=== PATIENT | male | born 1960 | race Caucasian/White ===

== ENCOUNTER 2019-11-04 03:26 | Inpatient (IN) | payer OTHER, SELFPAY ==
[2019-11-04] VITALS (31 sets, daily range): BP systolic 123–165; BP diastolic 71–112; PULSE 41–81; RESP 16–28; TEMP 36.5–36.9; O2SAT 94–99; BMI 22.1
--- NOTE | ~2019-11-04 | XR_ITS ---
XR chest 1V portable DATE: 11/04/2019 03:43 INDICATION: Shortness of breath, weakness TECHNIQUE: Portable upright AP chest on 11/04/2019 at 0342 hours COMPARISON: None FINDINGS: Normal heart size. There is mild aortic arch calcification. No hilar or mediastinal enlarge ment. No pulmonary infiltrate or consolidation, pleural effusion or pulmonary vascular congestion or pneumothorax. Osteopenia. IMPRESSION: No active cardiopulmonary disease Reviewed, dictated and finalized at location A.
--- NOTE | 2019-11-04 03:29 | ECG_ITS ---
Measurements Intervals [place] Rate: 68 P: 81 SD: 138 QRS: 74 QRSD: 100 T: 94 QT: 354 QTc: 378 Interpretive Statements SINUS RHYTHM ATRIAL PREMATURE COMPLEX POSSIBLE LEFT ATRIAL ENLARGEMENT INCOMPLETE RIGHT BUNDLE BRANCH BLOCK INFERIOR ST ELEVATION MYOCARDIAL INJURY- ACUTE POSTERIOR INFARCT- ACUTE ABNORMAL ECG Electronically Signed On 11-04-2019 7:22:34 CDT by Manuel Caro D.O.
[2019-11-04 03:43] LABS: Basophils Percent Auto 0.3 % (0.2-1.2); Eosinophils Absolute Auto 0.1 K/mm3 (0-0.3); Hematocrit 46.5 % (42.0-52.0); Immature Granulocyte Absolute 0.06 K/mm3 (0.00-0.031); Immature Granulocyte Percent A 0.5 % (0-0.5); Lymphocytes Absolute Auto 2.53 K/mm3 (0.9-3.2); Lymphocytes Percent Auto 21.7 % (18.3-44.2); Mean Corpuscular HGB Conc 34.4 g/dl (32-36); Mean Corpuscular Hemoglobin 32.5 pg (26-34); Mean Corpuscular Volume 94.5 fl (80-100); Mean Platelet Volume 9.3 fl (7.4-10.4); Monocytes Absolute Auto 0.5 K/mm3 (0.1-0.6); Monocytes Percent Auto 4.4 % (2.6-8.5); Neutrophils Absolute Auto 8.4 K/mm3 (1.3-6.7); Neutrophils Percent Auto 72.1 % (45.5-73.1); Platelet Count Result 244 k/mm3 (150-375); Red Blood Count 4.92 M/mm3 (4.6-6.20); Red Cell Distribution Width 13.2 % (11.5-14.5); White Blood Count 11.6 K/mm3 (4.5-10.0)
--- NOTE | 2019-11-04 03:52 | ED.CHESTPAIN ---
HPI - Chest Pain General Chief Complaint: Chest Pain Stated Complaint: CP History of Present Illness HPI narrative: Awoken from sleep early this morning by severe substernal chest pain without radiation. Associated with dyspnea and nausea. He has never had this type f pain before. EMS found him to have an inferior GA on 12-lead. Given aspirin. Pain still /10 on arrival to the ED. He reports no medical history, although he has not sought medical care in quite some time. Related Data Home Medications Medication Instructions Recorded Confirmed No Home Medications 11/04/19 11/04/19 Allergies Allergy/AdvReac Type Severity Reaction Status Date / Time No Known Allergies Allergy Unverified 11/04/19 03:25 Review of Systems Review of Systems: All systems reviewed & are unremarkable except as noted in HPI and below Constitutional: Constitutional: Denies fever(s) ENT: Denies dizziness Cardiovascular: Cardiovascular: Reports chest pain and Denies radiating jaw, neck or arm pain Respiratory: Respiratory: Reports dyspnea Gastrointestinal: Gastrointestinal: Denies abdominal pain and Reports nausea Musculoskeletal: Musculoskeletal: Denies back pain PMFSH Social History Social History (Updated 11/04/19 @ 03:55 by Morgan Martinez MD) Smoking status: Current every day smoker Exam Const: General: alert Nutritional Appearance: well nourished Orientation/consciousness: patient oriented x3 Other: moderate distress HENMT: Head: normal to inspection Chest: Chest palpation & inspection: no tenderness Resp: Effort & Inspection: normal respiratory effort Auscultation: clear to auscultation bilaterally Cardio: Rate: regular rate Rhythm: regular rhythm Skin: General skin exam: normal color Neuro: General: patient oriented x3, moves all extremities, no focal motor deficits and CN's II-XI intact bilaterally Speech: normal speech Extrem: General: no edema Course Vital Signs Vital signs: Vital Signs Temperature 36.7 C 11/04/19 03:25 Pulse Rate 80 11/04/19 03:25 Respiratory Rate 22 H 11/04/19 03:25 Blood Pressure 151/112 H 11/04/19 03:25 Pulse Oximetry 96 11/04/19 03:25 Temperature 36.7 C 11/04/19 03:25 Pulse Rate 81 11/04/19 03:47 Respiratory Rate 28 H 11/04/19 03:47 Blood Pressure 123/97 H 11/04/19 03:47 Pulse Oximetry 98 11/04/19 03:47 MDM - Chest Pain MDM Narrative Medical decision making narrative: ST elevations in all inferior leads with reciprocal changes. I will avoid nitro given that this is an inferior GA. Will give morphine PRN and IV metorpolol. Will defer on heparin to cardiology. 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 Medical Records Data Attestation: I reviewed the patient's medical records. Lab Data Result diagrams: 11/04/19 03:36 11/04/19 03:36 Labs: Lab Results 11/04/19 11/04/19 11/04/19 Range/Units 03:36 03:36 03:36 WBC Pending RBC Pending Hgb Pending Hct Pending MCV Pending MCH Pending MCHC Pending RDW Pending Plt Count Pending MPV Pending Immature Gran % (Auto) Pending Neut % (Auto) Pending Lymph % (Auto) Pending [place] % (Auto) Pending Eos % (Auto) Pending Baso % (Auto) Pending Lymph # (Auto) Pending [place] # (Auto) Pending Eos # (Auto) Pending Baso # (Auto) Pending Abs Immat Gran (auto) Pending Absolute Neuts (auto) Pending Absolute Nucleated RBC Pending Nucleated RBC % Pending PT Pending INR Pending APTT Pending Sodium Pending Potassium Pending Chloride Pending Carbon Dioxide Pending BUN Pending Creatinine Pending Estim Creat Clear Calc Pending Estimated GFR Pending Glucose Pending Calcium Pending Total Bilirubin Pending AST Pending ALT Pending Alkaline Phosphatase Pending Troponin I Pendin
[2019-11-04 03:55] LABS: Alanine Aminotransferase 19 U/L (4-50); Alkaline Phosphatase 72 U/L (38-126); Aspartate Amino Transferase 25 U/L (17-59); Bilirubin,Total 0.3 mg/dL (0.2-1.3); Blood Urea Nitrogen 10 mg/dL (9-20); Calcium 8.7 mg/dL (8.4-10.2); Carbon Dioxide 21 mmol/L (22-30); Chloride 108 mmol/L (98-107); Cholesterol 170 mg/dL (0-200); Estimated Glomerular Filt Rate > 60; Glucose 191 mg/dL (75-110); HDL Direct 32 mg/dL; Potassium 3.7 mmol/L (3.4-5.0); Sodium 139 mmol/L (137-145); Triglycerides 460 mg/dL (<150)
[2019-11-04 04:00] LABS: Partial Thromboplastin Time 25.1 SECONDS (22.3-36.8)
[2019-11-04 04:06] LABS: LDL Cholesterol Direct 104 mg/dL
[2019-11-04 04:14] LABS: Troponin I 0.042 ng/mL (0.000-0.034)
--- NOTE | 2019-11-04 04:41 | ECG_ITS ---
Measurements Intervals [place] Rate: 67 P: 79 MS: 122 QRS: 79 QRSD: 99 T: 75 QT: 408 QTc: 432 Interpretive Statements SINUS RHYTHM WITH SINUS ARRHYTHMIA INCOMPLETE RIGHT BUNDLE BRANCH BLOCK BASELINE ARTIFACT- I, AVL BORDERLINE ECG Electronically Signed On 11-04-2019 7:23:20 CDT by Manuel Caro D.O.
--- NOTE | 2019-11-04 04:47 | WPDCARDPROC ---
Cardiac Cath Procedure Note Date of procedure:: 11/04/19 Performing physician:: Wilner August MD Indication:: acute inferior wall IN Brief clinical history:: this is a 59-year-old patient without any previous known cardiac history. In the middle of the night he was awakened with chest pain 911 was called to his home. Apparently ECG in the field demonstrated acute inferior current of injury and STEMI team was activated. Procedure Procedure performed:: Emergency coronary angiography emergency percutaneous intervention the RCA left ventriculography Sedation/Medication given:: no sedation administered Access site:: right femoral artery Estimated blood loss:: 20-30 Procedure note:: the patient was brought to the cardiac catheterization lab in the emergency setting described above. The right femoral triangle was prepped and draped in the usual fashion. Anesthesia was given with 1% lidocaine infiltrated locally. Using the modified Seldinger technique a 6 Uzbek sheath was punctured into the right femoral artery. After this standard 5 Uzbek FL4 and JR4 catheters were used to engage inject the left and right coronary arteries respectively. The cine angiograms were reviewed. Following this PCI of the right coronary artery was recommended and carried out as detailed below. the right coronary artery was engaged using the 6 Uzbek JR4 guiding catheter. The stenosis was crossed with a 0.014 BMW guidewire. The lesion was pre-dilated with a 3 x 20 mm emerge PTCA balloon. The lesion was stented with a 3.5 x 22 mm [employer] Corpi[employer] sirolimus eluting stent. Following completion of PCI the guidewires guiding catheter were removed. After this a 5 Uzbek angled pigtail catheter was used to measure left-sided hemodynamics and to injected LV g in the LENTZ projection. After diagnostic angiography and before intervention the patient was anticoagulated with Angiomax bolus and infusion and he received a loading dose of 180 mg of oral Brilinta. At the conclusion of the case the sheath was sutured into position and he was taken to the ICU for post IN/PCI recovery in stable condition. There were no procedural complications and there was no groin hematoma upon leaving the laborer wrecking and salvaging Findings:: the left main coronary artery is medium in caliber and nicely patent. the LAD is a medium caliber artery which gives rise to a moderate-sized diagonal branch and then bifurcates more distally. The LAD itself has mild diffuse disease throughout but no significant flow-limiting lesions. The major diagonal branch has approximately 60-70% stenosis in the 1st portion of the vessel. Circumflex is a moderate caliber artery with also mild diffuse disease throughout. In the midportion of the circumflex there appears to be 70% stenosis in the trunk of the AV groove. Right coronary artery is large in caliber dominant to the posterior circulation and is also diffusely disease throughout. Most of this is mild diffuse plaquing. There is a subtotal 99% stenosis in the mid RCA which is obviously the culprit lesion. The proximal right coronary artery has 50% stenosis with an ulcerated plaque. This does not appear to be flow limiting. The RCA as detailed above was crossed with the 0.014 BMW guidewire. Following pre dilatation and deployment of the course 0 stent device detailed above the culprit stenosis was affectively obliterated with -10% residual stenosis. There was no evidence of dissection perforation or distal embolization. The RV branch was immediately at the site of the stenosis and was jailed by the stent device. The left ventricle is mildly dilated and demonstrates akinesis of the infero posterior wall. The remainder of the LV is mildly hypodynamic with a global ejection fraction of 40% Conclusion:: 1. acute inferior wall myocardial infarction related to subtotal 99% stenosis in the midportion of the dominant right coronary artery. The remainder of the vessel is mild
--- NOTE | 2019-11-04 04:57 | PM.IMHP ---
H&P: HPI History of Present Illness Chief complaint: STEMI Narrative: Ruiz Mac is a 59 year old male who is unknown to me prior to this encounter. I was called in the middle of the night as the STEMI team was activated because of acute inferior wall AZ. Apparently the patient was asleep and was awakened in the middle of the night with retrosternal burning chest pain. EMS was called to his residence where ECG in the field was diagnostic acute inferior wall AZ. In that situation we were activated for emergency catheterization. The not known to have any previous cardiac problems. He is not known to have significant medical problems from what I understand although he does not have any regular medical attention Review of Systems Review of Systems: ROS unobtainable: Yes unobtainable due to medical condition [facility] Social History Social History (Updated 11/04/19 @ 03:55 by Morgan Martinez MD) Smoking status: Current every day smoker Meds Home Medications and Allergies Home Medications Medication Instructions Recorded Confirmed Type No Home Medications 11/04/19 11/04/19 History Allergies Allergy/AdvReac Type Severity Reaction Status Date / Time No Known Allergies Allergy Unverified 11/04/19 03:25 Vital Signs Vital Signs - 24 hr 11/04/19 03:25 11/04/19 03:47 Temperature 36.7 C Pulse Rate 79 81 Respiratory Rate 22 H 28 H Blood Pressure 151/112 H 123/97 H Pulse Oximetry 96 98 Exam Const: General: in distress and uncomfortable Other: somewhat disheveled-appearing white male who appears considerably older than his stated age with a long unkempt garcia HENMT: Mouth: Yes moist mucous membranes Eyes: Sclera: sclerae normal Pupils: Equal, round and reactive pupils present Neck: Neck: supple and no JVD Thyroid: thyroid normal Other: carotid upstrokes are intact no significant bruits are audible Resp: Effort & Inspection: normal respiratory effort Other: breath sounds are diminished throughout both lung robles no rales rhonchi or wheezing Cardio: Rate: regular rate Rhythm: regular rhythm Other: no audible murmur S4 is evident PMI is enlarged GI: GI Palp: Yes Soft to palpation Auscultation: normal bowel sounds Skin: General skin exam: normal color Extrem: General: normal to inspection H&P: Results Labs Labs: Short CBC 11/04/19 Range/Units 03:36 WBC 11.6 H (4.5-10.0) K/mm3 Hgb 16.0 (14.0-18.0) g/dL Hct 46.5 (42.0-52.0) % Plt Count 244 (150-375) k/mm3 BMP 11/04/19 03:36 Sodium 139 Potassium 3.7 Chloride 108 H Carbon Dioxide 21 L BUN 10 Creatinine 0.70 Glucose 191 H Calcium 8.7 Cardiac Enzymes 11/04/19 Range/Units 03:36 Troponin I 0.042 H* (0.000-0.034) ng/mL Liver Function 11/04/19 Range/Units 03:36 Total Bilirubin 0.3 (0.2-1.3) mg/dL AST 25 (17-59) U/L ALT 19 (4-50) U/L Alkaline Phosphatase 72 (38-126) U/L Albumin 4.0 (3.5-5.1) g/dL Assessment and Plan Additional Plan 59-year-old patient with acute inferior wall myocardial infarction being brought for emergency angiography in hopes of providing emergency revascularization Wilner August [facility]
[2019-11-04] MEDS: SODIUM CHLORIDE 0.9% IV 1,000 ML 125 ML IV CONT (05:43)
[2019-11-04] MEDS: MORPHINE SULFATE 2 MG/ML INJ IV PUSH (05:44)
[2019-11-04] MEDS: LOSARTAN POTASSIUM 25 MG TABLET PO (05:45)
[2019-11-04] MEDS: carvediloL 6.25 MG TABLET PO ×2 (05:45→19:40)
--- NOTE | 2019-11-04 06:19 | ADMIMU ---
This patient, Ruiz Mac, was admitted to ICU status, and placed in Intensive Care Unit-6 on 11/04/19 at 0500. Patient/family oriented to hospital policies and general routines including ID bracelet, bed and alarms, visiting hours, pain management, procedures, bathroom and other care routines, personal items, smoking policy, room service/diet, and visiting hours. Valuables list has been completed. Information on how to activate the Rapid Response Team has been discussed. Patient/Family are encouraged to report perceived risks to care and to ask questions if they do not understand what they are told or what they should do.
--- NOTE | 2019-11-04 06:20 | PC.NURSE ---
Pt given frequent reminders to keep right leg straight, brace right groin if he needs to cough, keep head flat, do not cross legs, and reinforced he can not turn on side. Sheath can be pulled at 0750.
[2019-11-04] MEDS: TICAGRELOR 90 MG TABLET PO ×2 (08:55→20:14)
[2019-11-04] MEDS: ROSUVASTATIN 10 MG TABLET 20 MG PO (08:55)
[2019-11-04] MEDS: ASPIRIN 81 MG CHEWABLE TABLET PO (08:55)
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
[2019-11-04] MEDS: LOSARTAN POTASSIUM 50 MG TABLET PO (10:14)
[2019-11-05] VITALS (16 sets, daily range): BP systolic 118–172; BP diastolic 66–101; PULSE 55–78; RESP 16–26; TEMP 36.1–36.6; O2SAT 98–100
--- NOTE | 2019-11-05 05:11 | ECG_ITS ---
Measurements Intervals [place] Rate: 55 P: 78 CA: 113 QRS: -11 QRSD: 102 T: -68 QT: 466 QTc: 448 Interpretive Statements SINUS BRADYCARDIA WITH SHORT CA INTERVAL INCOMPLETE RIGHT BUNDLE BRANCH BLOCK INFERIOR INFARCT, PROBABLY RECENT ABNORMAL ECG Electronically Signed On 11-05-2019 9:27:40 CDT by Manuel Caro D.O.
[2019-11-05 08:22] LABS: Basophils Percent Auto 0.3 % (0.2-1.2); Eosinophils Absolute Auto 0.2 K/mm3 (0-0.3); Eosinophils Percent Auto 1.8 % (0-4.4); Hematocrit 45.9 % (42.0-52.0); Hemoglobin 15.9 g/dL (14.0-18.0); Immature Granulocyte Absolute 0.14 K/mm3 (0.00-0.031); Immature Granulocyte Percent A 1.1 % (0-0.5); Lymphocytes Absolute Auto 2.28 K/mm3 (0.9-3.2); Lymphocytes Percent Auto 17.8 % (18.3-44.2); Mean Corpuscular HGB Conc 34.6 g/dl (32-36); Mean Corpuscular Hemoglobin 32.4 pg (26-34); Mean Corpuscular Volume 93.5 fl (80-100); Mean Platelet Volume 9.6 fl (7.4-10.4); Monocytes Absolute Auto 0.9 K/mm3 (0.1-0.6); Neutrophils Absolute Auto 9.2 K/mm3 (1.3-6.7); Platelet Count Result 208 k/mm3 (150-375); Red Blood Count 4.91 M/mm3 (4.6-6.20); Red Cell Distribution Width 13.2 % (11.5-14.5); White Blood Count 12.8 K/mm3 (4.5-10.0)
[2019-11-05] MEDS: carvediloL 6.25 MG TABLET PO ×2 (08:34→20:13)
[2019-11-05] MEDS: ROSUVASTATIN 10 MG TABLET 20 MG PO (08:34)
[2019-11-05] MEDS: ASPIRIN 81 MG CHEWABLE TABLET PO (08:34)
[2019-11-05 08:35] LABS: Blood Urea Nitrogen 9 mg/dL (9-20); Calcium 8.6 mg/dL (8.4-10.2); Calcium 8.7 mg/dL (8.4-10.2); Carbon Dioxide 25 mmol/L (22-30); Chloride 105 mmol/L (98-107); Chloride 106 mmol/L (98-107); Estimated CRCL calculation 108 ml/min; Estimated CRCL calculation 94 ml/min; Estimated Glomerular Filt Rate > 60; Glucose 110 mg/dL (75-110); Phosphorus 2.7 mg/dL (2.5-4.5); Sodium 134 mmol/L (137-145); Sodium 135 mmol/L (137-145)
[2019-11-05] MEDS: LOSARTAN POTASSIUM 100 MG TABLET PO (08:35)
[2019-11-05] MEDS: TICAGRELOR 90 MG TABLET PO ×2 (08:35→20:13)
--- NOTE | 2019-11-05 09:38 | WPDINTPN ---
Progress Note: A&P Assessment and Plan (1) ST elevation (STEMI) myocardial infarction: Qualifiers: Involved coronary artery: unspecified coronary artery Qualified Code(s): I21.3 - ST elevation (STEMI) myocardial infarction of unspecified site Code(s): I21.3 - ST elevation (STEMI) myocardial infarction of unspecified site Status: Acute Assessment and Plan: patient presented with chest pain on 11/04/2019 in the early hours, found to have acute inferior ST-elevation [place] status post cardiac catheterization, PTCA/ PCI with EVANGELINA x1 to mid portion of the dominant RCA. LV systolic dysfunction with inferior posterior akinesis and global ejection fraction of 40% was noted - Continue Brilinta, aspirin, carvedilol, rosuvastatin, losartan - cardiology following the patient. (2) Hyperlipidemia: Qualifiers: Hyperlipidemia type: unspecified Qualified Code(s): E78.5 - Hyperlipidemia, unspecified Code(s): E78.5 - Hyperlipidemia, unspecified Status: Acute Assessment and Plan: hypertriglyceridemia, patient on rosuvastatin (3) Hypertension: Qualifiers: Hypertension type: essential hypertension Qualified Code(s): I10 - Essential (primary) hypertension Code(s): I10 - Essential (primary) hypertension Status: Acute Assessment and Plan: possible undiagnosed essential hypertension - patient on Coreg and losartan, cardiology following the patient increased losartan does yesterday - Additional Plan discussed with patient updated with his condition and plan of care. Code status: Full code Critical care time spent: 31 minutes likely patient will downgrade to IMU status Due to a high probability of clinically significant, life threatening deterioration, the patient required my highest level of preparedness to intervene emergently and I personally spent this critical care time directly and personally managing the patient. This critical care time included obtaining a history; examining the patient; pulse oximetry; ordering and review of studies; arranging urgent treatment with development of a management plan; evaluation of patient's response to treatment; frequent reassessment; and discussions with other providers. It was exclusive of separately billable procedures and treating other patients and teaching time. Please see Assessment and Plan section and the rest of the note for further information on patient assessment and treatment Subjective Date/time seen: 11/05/19 09:38 Reason for consult: acute inferior wall [place] status post cardiac catheterization, PTCA/ PCI with EVANGELINA x1 to mid portion of the dominant right coronary artery 11/05/2019: Patient seen and examined this morning. Denies any chest pain, shortness of breath abdominal pain, nausea, vomiting. Patient has been hypertensive. Good urine output, afebrile, hemodynamically stable. Review of Systems Review of Systems: All systems reviewed & are unremarkable except as noted in HPI and below Exam Const: General: comfortable and no acute distress HENMT: Mouth: Yes dry mucous membranes Eyes: Sclera: sclerae normal Pupils: Equal, round and reactive pupils present Neck: Neck: supple and no JVD Resp: Effort & Inspection: normal respiratory effort Auscultation: clear to auscultation bilaterally Cardio: Rate: regular rate Rhythm: regular rhythm GI: Inspection: non-distended GI Palp: Yes Soft to palpation and No Tenderness to palpation present (GI) Auscultation: normal bowel sounds : Other: deferred Skin: General skin exam: normal color and no rashes or lesions noted Neuro: Cranial nerves: Yes Equal, round and reactive pupils present Other: patient is awake, alert, oriented, nonfocal. Follows simple commands in all extremities Extrem: General: no edema and no pedal edema Other: Right groin site without evidence of ecchymosis or hematoma Psych: Mental Status: mental sta
--- NOTE | 2019-11-05 12:45 | PM.PNCARD ---
Progress Note: A&P Additional Plan 59-year-old white male with: Coronary artery disease presenting with acute inferior wall infarction. Underwent successful emergency PCI with stenting of subtotal occlusion of the mid RCA. The remainder of his coronary arteries are diffusely diseased but there are no other high-grade flow-limiting lesions. Left ventricular function is [id number] depressed. Patient has a history of longstanding tobacco use but no prior history of other known medical problems. He had very little in the way of medical attention prior to this Patient may transfer to the floor today. Continue dual anti-platelet therapy, carvedilol losartan and statin therapy. He was very hypertensive last evening but with the above medications blood pressure has now normalized. Anticipate possible discharge tomorrow will determine that when I see him on rounds in the morning Wilner August MD [facility] Subjective Date/time seen: Date of service: 11/05/19 12:45 Interval history: Follow-up visit in 59-year-old gentleman with acute inferior wall infarction with emergency RCA intervention Patient is asymptomatic today feels well and is very appreciative of the care he received Exam Const: General: comfortable and no acute distress HENMT: Mouth: Yes moist mucous membranes Eyes: Sclera: sclerae normal Pupils: Equal, round and reactive pupils present Neck: Neck: supple and no JVD Thyroid: thyroid normal Other: Carotid pulses normal no bruits Resp: Effort & Inspection: normal respiratory effort Other: Breath sounds diminished throughout both lung robles Cardio: Rate: regular rate Rhythm: regular rhythm Other: No murmur no gallop no rub GI: Auscultation: normal bowel sounds Skin: General skin exam: normal color Neuro: Cognition (Neuro): normal cognition Extrem: General: normal to inspection Objective Data Vital Signs Vital Signs: Vital Signs - 24 hr 11/04/19 13:55 11/04/19 14:00 11/04/19 14:21 Temperature Pulse Rate 75 60 69 Pulse Rate [Right Pedal (Dorsalis Pedis) Monitor] 69 Respiratory Rate 16 16 Blood Pressure 159/76 H 159/76 H Pulse Oximetry 98 98 11/04/19 16:00 11/04/19 17:48 11/04/19 18:00 Temperature 36.9 C Pulse Rate 64 61 70 Pulse Rate [Right Pedal (Dorsalis Pedis) Monitor] Respiratory Rate 16 18 Blood Pressure 134/71 129/79 Pulse Oximetry 97 94 11/04/19 19:40 11/04/19 20:00 11/04/19 22:00 Temperature 36.8 C Pulse Rate 66 61 58 L Pulse Rate [Right Pedal (Dorsalis Pedis) Monitor] Respiratory Rate 17 17 Blood Pressure 147/86 H 153/89 H Pulse Oximetry 99 99 11/05/19 00:00 11/05/19 02:00 11/05/19 04:00 Temperature 36.4 C Pulse Rate 56 L 59 L 56 L Pulse Rate [Right Pedal (Dorsalis Pedis) Monitor] Respiratory Rate 16 20 16 Blood Pressure 172/101 H 135/78 149/91 H Pulse Oximetry 100 99 100 11/05/19 06:00 11/05/19 08:00 11/05/19 08:34 Temperature Pulse Rate 59 L 70 63 Pulse Rate [Right Pedal (Dorsalis Pedis) Monitor] Respiratory Rate 26 H 16 Blood Pressure 159/94 H 146/99 H Pulse Oximetry 99 99 11/05/19 09:54 11/05/19 10:00 11/05/19 12:00 Temperature Pulse Rate 61 63 71 Pulse Rate [Right Pedal (Dorsalis Pedis) Monitor] Respiratory Rate 16 21 H Blood Pressure 118/77 127/86 Pulse Oximetry 98 98 Intake/Output Intake/Output: Intake & Output 11/02/19 11/03/19 11/04/19 11/05/19 23:59 23:59 23:59 23:59 Intake Total 2600 360 Output Total 975 1700 Balance 1625 -1340 Meds/Results Medications: Active Medications Generic Name Dose Route Start Last Admin Trade Name Freq PRN Reason Stop Dose Admin Hydrocodone Bitart/Acetaminophen 1 tab 11/04/19 05:31 11/04/19 08:54 [place] 5-325 Mg PO 1 tab Q4H PRN Administration Pain Rated 4-6 Aspirin 81 mg 11/04/19 08:00 11/05/19 08:34 Aspirin Chewable PO 81 mg DAILY@0800 HERNANEDZ Administration Carvedilol 6.25 mg 11/04/19 09:00
--- NOTE | 2019-11-05 15:22 | PCDIET ---
This patient, Ruiz Mac, was received from ICU-6 into 207 via wheelchair on 11/05/19 at 1522. Personal belongings list checked and signed. Report received from JOSE Sharp. Patient/family oriented to unit policies and routines
[2019-11-06] VITALS (7 sets, daily range): BP systolic 114–138; BP diastolic 60–95; PULSE 58–79; RESP 18; TEMP 36.2–36.9; O2SAT 96–98
[2019-11-06] MEDS: TICAGRELOR 90 MG TABLET PO (08:41)
[2019-11-06] MEDS: LOSARTAN POTASSIUM 100 MG TABLET PO (08:41)
[2019-11-06] MEDS: ASPIRIN 81 MG CHEWABLE TABLET PO (08:41)
[2019-11-06] MEDS: ROSUVASTATIN 10 MG TABLET 20 MG PO (08:41)
[2019-11-06] MEDS: carvediloL 6.25 MG TABLET PO (08:41)
--- NOTE | 2019-11-06 09:28 | PM.PNCARD ---
Progress Note: A&P Additional Plan Diffuse multivessel coronary artery disease as described in my emergency angiogram note. Patient presented with acute inferior wall SD having undergone emergency PCI to the right coronary artery restoring NISHA 3 flow in the vessel. He appears to be a acceptable candidate for discharge today. Dual anti-platelet therapy, beta-masoud ARB and statin will be continued. Office follow-up will be arranged for 2-3 weeks. Wilner August MD [facility] Time Spent With Patient Time with patient: 15 - 25 minutes Subjective Date/time seen: Date of service: 11/06/19 09:28 Interval history: Follow-up visit in 59-year-old man after presenting with inferior wall SD undergoing emergency PCI to RCA Exam Const: General: comfortable and no acute distress HENMT: Mouth: Yes dry mucous membranes Eyes: Sclera: sclerae normal Pupils: Equal, round and reactive pupils present Neck: Neck: supple and no JVD Thyroid: thyroid normal Resp: Effort & Inspection: normal respiratory effort Other: Diminished breath sounds in both lung robles with expiratory rhonchi centrally fairly good air exchange otherwise Cardio: Rate: regular rate Rhythm: regular rhythm Other: No murmur no gallop no rub GI: Auscultation: normal bowel sounds Skin: General skin exam: normal color Neuro: Cognition (Neuro): normal cognition Extrem: General: normal to inspection Objective Data Vital Signs Vital Signs: Vital Signs - 24 hr 11/05/19 09:54 11/05/19 10:00 11/05/19 12:00 Temperature Pulse Rate 61 63 59 L Respiratory Rate 16 21 H Blood Pressure 118/77 127/86 Pulse Oximetry 98 98 11/05/19 14:00 11/05/19 16:00 11/05/19 18:00 Temperature 36.6 C Pulse Rate 64 61 61 Respiratory Rate 16 Blood Pressure 147/85 H Pulse Oximetry 98 11/05/19 19:53 11/05/19 20:00 11/05/19 20:13 Temperature 36.1 C L Pulse Rate 65 75 78 Respiratory Rate 18 Blood Pressure 121/66 Pulse Oximetry 98 11/05/19 22:00 11/06/19 00:00 11/06/19 02:00 Temperature 36.2 C L Pulse Rate 58 L 68 69 Respiratory Rate 18 Blood Pressure 138/95 H Pulse Oximetry 96 11/06/19 03:53 11/06/19 04:00 11/06/19 06:00 Temperature 36.2 C L Pulse Rate 79 58 L 60 Respiratory Rate 18 Blood Pressure 114/60 Pulse Oximetry 98 11/06/19 08:00 11/06/19 08:41 Temperature 36.9 C Pulse Rate 65 59 L Respiratory Rate 18 Blood Pressure 128/90 Pulse Oximetry 98 Intake/Output Intake/Output: Intake & Output 11/03/19 11/04/19 11/05/19 11/06/19 23:59 23:59 23:59 23:59 Intake Total 2600 1190 540 Output Total 975 1700 Balance 1625 -510 540 Meds/Results Medications: Active Medications Generic Name Dose Route Start Last Admin Trade Name Freq PRN Reason Stop Dose Admin Hydrocodone Bitart/Acetaminophen 1 tab 11/04/19 05:31 11/04/19 08:54 [place] 5-325 Mg PO 1 tab Q4H PRN Administration Pain Rated 4-6 Aspirin 81 mg 11/04/19 08:00 11/06/19 08:41 Aspirin Chewable PO 81 mg DAILY@0800 HERNANDEZ Administration Carvedilol 6.25 mg 11/04/19 09:00 11/06/19 08:41 Coreg PO 6.25 mg Q12HR HERNANDEZ Administration Losartan Potassium 100 mg 11/05/19 09:00 11/06/19 08:41 Cozaar PO 100 mg DAILY HERNANDEZ Administration Nitroglycerin 0.4 mg 11/04/19 04:41 Nitrostat Subl 0.4 Mg (1/150) SUBLINGUAL Q5MIN PRN Chest Pain Rosuvastatin Calcium 20 mg 11/04/19 09:00 11/06/19 08:41 Crestor PO 20 mg DAILY HERNANDEZ Administration Ticagrelor 90 mg 11/04/19 09:00 11/06/19 08:41 Brilinta PO 90 mg Q12HR HERNANDEZ Administration Radiology Results: ITS Impressions Chest X-Ray 11/04/19 07:59 IMPRESSION: No active cardiopulmonary disease
--- NOTE | 2019-11-06 09:33 | PM.DS ---
DS: Admitting Diagnosis Admitting Diagnosis Admitting Diagnosis: ST elevation (STEMI) myocardial infarction of unspecified site DS: Summary Time Spent with Patient Time attestation: Total time spent providing and/or coordinating discharge services: Exam Const: General: comfortable and no acute distress HENMT: Mouth: Yes moist mucous membranes Eyes: Sclera: sclerae normal Pupils: Equal, round and reactive pupils present Neck: Neck: supple and no JVD Thyroid: thyroid normal Resp: Effort & Inspection: normal respiratory effort Other: Decreased breath sounds with expiratory rhonchi centrally in both lung robles. Cardio: Rate: regular rate Rhythm: regular rhythm GI: GI Palp: Yes Soft to palpation Auscultation: normal bowel sounds Skin: General skin exam: normal color Extrem: General: normal to inspection Discharge Plan Discharge Attending physician on discharge: Wilner August Consulting providers: Rickey Rogers Discharging Clinician: Wilner August Patient Disposition: Home, Self-Care Activity: as tolerated Diet: heart healthy Discharge Instructions: Do not lift more than 20 lb for the next 5 days. Office will contact you for follow-up appointment. Expect follow-up appointment in 2-3 weeks. Patient Instructions: Ticagrelor (By mouth), Heart Attack (DC), Coronary Artery Disease (DC), Heart Healthy Diet (DC), Pain Management (DC), Hypertension (DC), Heart Catheterization (DC), Antibiotic Form Stand Alone Forms: General Discharge Information Follow-up/Referrals: Rickey Rogers MD [Physician] - Discharge Medications: New aspirin [Children's Aspirin] 81 mg Tablet,Chewable 81 mg PO DAILY@0800 Qty: 30 RF: 5 carvedilol [Coreg] 6.25 mg Tablet 6.25 mg PO Q12HR Qty: 60 RF: 5 rosuvastatin [Crestor] 10 mg Tablet 20 mg PO DAILY Qty: 30 RF: 5 losartan 100 mg Tablet 100 mg PO DAILY Qty: 30 RF: 5 nitroglycerin [Nitrostat] 0.4 mg Tablet, Sublingual 0.4 mg sublingual Q5MIN PRN (Reason: Chest Pain) Qty: 20 RF: 5 Brilinta 90 mg Tablet 90 mg PO Q12HR Qty: 60 RF: 5 No Action No Home Medications RF: 0 Date of admission: 11/04/19 03:42 Primary Care Provider: PHYSICIAN,HAND LEATHER TRIMMER Admitting Provider: Wilner August Attending physician on admission: Wilner August Condition: Serious
== END 2019-11-06 10:33 | disposition home or self-care (01) | DRG 174 ==
LOC: ANHED 03:42 → ANHICU 04:01 → ANHIMU 11-05 18:10 → ANHICU 11-09 12:35 → ANHIMU 11-09 12:35
PROVIDERS: Internal Medicine; Admitting Provider Specialist; Emergency Provider Emergency Medicine; Visit Provider Specialist
PROC: 4A023N7 Measurement of Cardiac Sampling and Pressure, Left Heart, Percutaneous Approach (ICD-10-PCS; CPT 93452; principal; 2019-11-04 04:00)
PROC: 027034Z Dilation of Coronary Artery, One Artery with Drug-eluting Intraluminal Device, Percutaneous Approach (ICD-10-PCS; 2019-11-04 04:00)
DX: I21.19 ST elevation (STEMI) myocardial infarction involving other coronary artery of inferior wall (principal); I25.10 Atherosclerotic heart disease of native coronary artery without angina pectoris; F17.210 Nicotine dependence, cigarettes, uncomplicated; E78.5 Hyperlipidemia, unspecified; I10 Essential (primary) hypertension
CPT/HCPCS: 36415; 71045; 80048; 80053; 80061; 83735; 84100; 84484; 85025; 85610; 85730; 86850; 86900; 86901; 93005; 93458; 99291; A9270; C1725; C1769; C1874; C1887; C1894; C9606; J0583; J1644; J2270; J7030; J7040

== ENCOUNTER 2022-02-02 10:27 | Inpatient (IN) | payer OTHER, SELFPAY ==
[2022-02-02] VITALS (13 sets, daily range): BP systolic 130–158; BP diastolic 76–113; PULSE 68–102; RESP 16–25; TEMP 36–36.7; O2SAT 97–100; BMI 22.5; BMI 24.4
--- NOTE | 2022-02-02 | ECHO_ITS ---
Patient Info Name: Ruiz Mac Age: 61 years : 1960 Gender: Male Ht: 70 in Wt: 170 lbs BSA: 1.96 m2 HR: 68 bpm BP: 147 / 78 mmHg Heart Rhythm: Sinus Rhythm Technical Quality: Fair Exam Date: 02/02/2022 3:05 PM Exam Location: [facility] Patient Status: Inpatient Admit Date: 02/02/2022 Staff Ordering Physician: Mary Evans NP Television Specialist: Elana Gastelum RDCS Attending Provider: Maru Vernon DO Referring Physician: Cristina RIVERA; Exam Type: CA echo dop color flow w con Study Info Indications - history of coronary artery disease with noncompl Complete two-dimensional, color flow and Doppler transthoracic echocardiogram is performed with contrast to opacify the left ventricle and to improve the deliniation of the left ventricle endocardial borders. Contrast/Agitated Saline Contrast/Ag. Saline: Definity Amount: 3.00 ml Administered By: Elana Gastelum RDCS Existing IV Access: Yes IV Access Condition: patent with no signs of infiltration Summary 1. Left ventricular chamber dimension is normal. 2. Left ventricular systolic function is mildy reduced, estimated at 50% with basal inferior hypokinesis. 3. There is mildly increased left ventricular wall thickness. 4. Left ventricular septal wall motion is abnormal with septal motion related to bundle branch block. 5. The left ventricular diastolic function is normal. 6. Right ventricular systolic function is mildly reduced. TAPSE 1.5. 7. There is no aortic valve stenosis. 8. There is trace mitral valve regurgitation. Left Ventricle Left ventricular chamber dimension is normal. Left ventricular systolic function is mildy reduced, estimated at 50% with basal inferior hypokinesis. There is mildly increased left ventricular wall thickness. Left ventricular septal wall motion is abnormal with septal motion related to bundle branch block. The left ventricular diastolic function is normal. Right Ventricle Right ventricular chamber dimension is normal. Right ventricular systolic function is mildly reduced. TAPSE 1.5. Left Atria Left atrial chamber dimension is normal. Right Atria Right atrial chamber dimension is mildly enlarged. Aortic Valve The aortic valve is not well visualized. There is no aortic valve stenosis. There is no aortic valve regurgitation. Pulmonic Valve The pulmonic valve is not well visualized. Mitral Valve The mitral valve has normal leaflets. There is trace mitral valve regurgitation. Tricuspid Valve The tricuspid valve leaflets are normal. There is trace tricuspid valve regurgitation. No pulmonary hypertension, estimated pulmonary arterial systolic pressure is 20 mmHg. Pericardium/Pleural The pericardium appears normal. There is no pericardial effusion. Inferior Vena Cava Dilated inferior vena cava with <50% collapse upon inspiration consistent with elevated right atrial pressure, 10 mmHg. Aorta The aortic root size at the sinus of Valsalva is normal. There is mild aortic atherosclerosis. Left Ventricular Outflow Tract Name Value Normal LVOT 2D LVOT Diameter 1.97 cm LVOT Doppler -
--- NOTE | ~2022-02-02 | XR_ITS ---
EXAMINATION: XR chest 2V DATE: 02/02/2022 11:20 INDICATION: Chest pain. TECHNIQUE: Frontal and lateral views of the chest were obtained. COMPARISON: Chest single view 11/04/2019 FINDINGS: The chest demonstrates clear lungs without pneumonia, pleural effusion, or pneumothorax. Th e heart size is normal. IMPRESSION: 1. No acute cardiopulmonary disease. Reviewed, dictated and finalized at location A.
--- NOTE | 2022-02-02 10:28 | ECG_ITS ---
Measurements Intervals [place] Rate: 92 P: 68 [place]: 136 QRS: 73 QRSD: 94 T: 92 QT: 381 QTc: 471 Interpretive Statements SINUS RHYTHM WITH FREQUENT VENTRICULAR PREMATURE COMPLEXES AND BRIEF ATRIAL RUN POSSIBLE LEFT ATRIAL ENLARGEMENT INCOMPLETE RIGHT BUNDLE BRANCH BLOCK ABNORMAL ECG COMPARED TO ECG 11/05/2019 07:51:29 HEART RATE HAS INCREASED Electronically Signed On 02-02-2022 16:29:01 CDT by Satya Lindsay M.D.
[2022-02-02 10:51] LABS: Basophils Percent Auto 0.4 % (0.2-1.2); Eosinophils Absolute Auto 0.3 K/mm3 (0-0.3); Eosinophils Percent Auto 3.7 % (0-4.4); Hemoglobin 16.1 g/dL (14.0-18.0); Immature Granulocyte Absolute 0.03 K/mm3 (0.00-0.031); Immature Granulocyte Percent A 0.3 % (0-0.5); Lymphocytes Absolute Auto 2.02 K/mm3 (0.9-3.2); Lymphocytes Percent Auto 22.2 % (18.3-44.2); Mean Corpuscular HGB Conc 33.5 g/dl (32-36); Mean Corpuscular Hemoglobin 32.3 pg (26-34); Mean Corpuscular Volume 96.4 fl (80-100); Mean Platelet Volume 9.5 fl (7.4-10.4); Monocytes Absolute Auto 0.7 K/mm3 (0.1-0.6); Monocytes Percent Auto 7.2 % (2.6-8.5); Neutrophils Percent Auto 66.2 % (45.5-73.1); Platelet Count Result 238 k/mm3 (150-375); Red Blood Count 4.98 M/mm3 (4.6-6.20); Red Cell Distribution Width 13.2 % (11.5-14.5); White Blood Count 9.1 K/mm3 (4.5-10.0)
[2022-02-02 11:02] LABS: Alanine Aminotransferase 25 U/L (6-50); Albumin Level 4.1 g/dL (3.5-5.1); Alkaline Phosphatase 75 U/L (38-126); Anion Gap 9 mmol/L (8-16); Aspartate Amino Transferase 32 U/L (17-59); Bilirubin,Total 0.5 mg/dL (0.2-1.3); Blood Urea Nitrogen 13 mg/dL (9-20); Carbon Dioxide 26 mmol/L (22-30); Chloride 101 mmol/L (98-107); Estimated CRCL calculation 88 ml/min; Estimated Glomerular Filt Rate > 60; Glucose 137 mg/dL (65-110); INR 1.1; Lipase 89 U/L (23-300); Partial Thromboplastin Time 28.6 SECONDS (22.3-36.8); Potassium 4.2 mmol/L (3.4-5.0); Prothrombin Time 13.6 Seconds (11.1-14.7); Sodium 136 mmol/L (137-145)
[2022-02-02 11:16] LABS: Troponin I 0.417 ng/mL (0.000-0.034)
--- NOTE | 2022-02-02 11:24 | ECG_ITS ---
Measurements Intervals [place] Rate: 83 P: 74 [place]: 138 QRS: 76 QRSD: 90 T: 91 QT: 395 QTc: 466 Interpretive Statements SINUS RHYTHM WITH FREQUENT VENTRICULAR PREMATURE COMPLEXES POSSIBLE LEFT ATRIAL ENLARGEMENT RSR' IN V1/V2 NONSPECIFIC T-WAVE ABNORMALITY BORDERLINE ECG COMPARED TO ECG 02/02/2022 10:30:48 T-WAVE ABNORMALITY NOW PRESENT Electronically Signed On 02-02-2022 16:35:12 CDT by Satya Lindsay M.D.
--- NOTE | 2022-02-02 11:35 | ED.CHESTPAIN ---
HPI - Chest Pain General Chief Complaint: Chest Pain Stated Complaint: chest pain Time Seen by Provider: 02/02/22 11:19 Source: RN notes reviewed History of Present Illness HPI narrative: Patient presents emergency room from home for chest pain. Patient states he was riding his bicycle this morning when he developed pain in his mid chest that radiated to his back pain was described as a pressure nature. States he stopped on his bike and the pain did improve but he still has some mild pressure in his chest. He states he has a history of a previous heart attack with 1 stent placed several years ago he states he is no longer on any cardiac medication and did not follow-up with cardiology denies any fevers or chills abdominal pain nausea vomiting or any other symptoms Related Data Allergies Allergy/AdvReac Type Severity Reaction Status Date / Time No Known Allergies Allergy Unverified 11/04/19 03:25 Review of Systems Review of Systems: Gen.: Denies fevers or chills ENT: Denies congestion Respiratory: Denies shortness of breath or cough CV: See HPI GI: Denies abdominal pain nausea, emesis or diarrhea Musculoskeletal: Denies back pain or muscle pain Neuro: Denies numbness, tingling, weakness or focal weakness Skin: Denies rash Except as documented, all other systems reviewed and negative [facility] Past Medical History Medical History (Updated 02/02/22 @ 11:53 by Jd Chu DO) ST elevation (STEMI) myocardial infarction Family History Family History (Updated 11/04/19 @ 05:20 by Jen Brown RN) Father Acute myocardial infarction Diabetes mellitus Mother Chronic obstructive pulmonary disease Social History Social History Smoking status: Current some day smoker Tobacco type: cigarettes Second hand tobacco smoke exposure: Yes Additional smoking assessment comments: smokes marijuana and cigarettes Alcohol intake: current Drinks per week: 1 Substance use: current Substance use type: marijuana Last use: November 01 Spiritual care concerns: No Exam Narrative: APPEARANCE: No acute distress, nontoxic, resting in bed EYES: EOMI HEENT: Normocephalic, atraumatic, OMM RESPIRATORY: No respiratory distress Clear to auscultation bilaterally with no rhonchi wheezing or rales. CARDIOVASCULAR: Regular rate and rhythm without murmurs rubs or gallops. ABDOMINAL: Soft, nontender, nondistended, no rebound or guarding MUSCULOSKELETAl: Moves all extremities. No clubbing, cyanosis or edema. NEURO: Awake and alert. Following commands, speech normal, no focal deficits SKIN:: Warm, dry. No rashes lesions or abrasions PSYCHIATRIC: Normal affect/mood, Course Course Emergency Course: Reviewed old records Discussed with HEART SURGEON Berta for Dr. Lindsay agrees with consult recommends patient started on heparin Discussed Dr. Vernon agrees with admission Discussed with patient and family results of workup and diagnosis. Discussed need for admission. Patient and family understand and agree to current treatment plan Vital Signs Vital signs: Vital Signs Temperature 98.0 F 02/02/22 10:34 Pulse Rate 93 02/02/22 10:34 Respiratory Rate 16 02/02/22 10:34 Blood Pressure 158/100 H 02/02/22 10:34 Pulse Oximetry 99 02/02/22 10:34 Oxygen Delivery Room Air 02/02/22 10:34 Temperature 98.0 F 02/02/22 10:34 Pulse Rate 93 02/02/22 10:34 Respiratory Rate 16 02/02/22 10:34 Blood Pressure 158/100 H 02/02/22 10:34 Pulse Oximetry 99 02/02/22 10:34 Oxygen Delivery Room Air 02/02/22 10:34 MDM - Chest Pain Lab Data Result diagrams: 02/02/22 10:44 02/02/22 10:44 Labs: Lab Results 02/02/22 02/02/22 02/02/22 Range/Units 10:44 10:44 10:44 WBC 9.1 (4.5-10.0) K/mm3 RBC 4.98 (4.6-6.20) M/mm3 Hgb 16.1 (14.0-18.0) g/dL Hct 48.0 (42.0-52.0) % MCV 96.4 (80-100) fl M[facility]
[2022-02-02] MEDS: ASPIRIN 81 MG CHEWABLE TABLET 324 MG PO (11:59)
[2022-02-02] MEDS: NITROGLYCERIN OINTMENT 1 INCH DOSE TRANSDERM (11:59)
[2022-02-02] MEDS: HEPARIN SODIUM 5,000 UNITS/ML VIAL 4000 UNITS IV PUSH ×2 (12:26→20:19)
[2022-02-02] MEDS: HEPARIN SOD/D5W 100 UNITS/ML 25,000 UNITS/250 ML BAG 9 UNITS IV CONT (12:28)
--- NOTE | 2022-02-02 12:40 | PC.NURSE ---
Called to let nurse in IMU know pt is coming up. Spoke to unit sec she stated nurse was busy.
--- NOTE | 2022-02-02 12:40 | PM.IMHP ---
H&P: HPI History of Present Illness Date/Time: 02/02/22 12:40 Chief Complaint: Chest pain Narrative: this is a 61-year-old male patient who has a history of having a coronary artery stent in the mid RCA that was placed by Dr. August on 11/04/2019 Due to a STEMI. Although the patient stated that he has been taking his anti-platelet there is none listed on his medication profile. Also there was no follow-up visit noted in our charting. the patient stated that he typically rides his bicycle everywhere. In when he went to get on his bicycle this morning he developed mid chest pain that radiated in between his shoulder blades. He also stated it was more of a pressure. He stopped riding his bike and got a ride to the hospital. The patient stated that the pain. When he arrived at the ER. He was given an aspirin, nitro paste and started on heparin drip His EKG was read as sinus rhythm with frequent PVCs possible left anterior enlargement. Nonspecific T-wave abnormalities. Troponin is 0.417. Cardiology has been consulted. Initially the patient was being admitted to observation but it was changed to inpatient status on the date of service of 02/02/2022. Review of Systems Review of Systems: See HPI All systems reviewed & are unremarkable except as noted in HPI and below Constitutional: Constitutional: Reports as per HPI and Reports no additional constitutional complaints Eyes: Eyes: Reports as per HPI and Reports no additional eye complaints ENT: Reports system reviewed and no additional complaints, except as documented and Reports Normal hearing present Cardiovascular: Cardiovascular: Reports no additional cardiovascular complaints Respiratory: Respiratory: Reports no additional respiratory complaints and Reports no additional respiratory complaints Gastrointestinal: Gastrointestinal: Reports as per HPI and Reports no additional gastrointestinal complaints Musculoskeletal: Musculoskeletal: Reports no additional musculoskeletal complaints Integumentary/Breasts: Skin/Breast: Reports system reviewed and no additional complaints, except as docu and Reports as per HPI Neurologic: Reports system reviewed and no additional complaints, except as documented, Reports as per HPI and Reports Normal hearing present Psychiatric: Psychiatric: Reports no additional psychiatric complaints and Reports as per HPI Endocrine: Endocrine: Reports no additional endocrine complaints Hematologic/Lymphatic: Hematologic/Lymphatic: Reports no additional hematologic/lymphatic complaints Allergic/Immunologic: Allergic/Immunologic: Reports no additional allergic/immunologic complaints [facility] Past Medical History Medical History HTN (hypertension), benign ST elevation (STEMI) myocardial infarction Surgical History Surgical History H/O heart artery stent Family History Family History Father Acute myocardial infarction Diabetes mellitus Mother Chronic obstructive pulmonary disease Social History Social History (Updated 02/02/22 @ 14:12 by Mary Evans NP) Social History: the patient stated that he is down to smoking 2-3 cigarettes a day. He is and does not have a car and rides his bicycle everywhere. He states that he lives with his father and takes care of him. He has 2 children. He denies any alcohol but does smoke marijuana for his pain in his hips. He is disabled. His sister is a durable power collection supervisor for him. Code status full code Years smoked: 40 Smoking status: Current some day smoker Tobacco type: cigarettes Second hand tobacco smoke exposure: Yes Additional smoking assessment comments: smokes marijuana and cigarettes Alcohol intake: current Drinks per week: 1 Substance use: current Substance use type: marijuana Last use: T
--- NOTE | 2022-02-02 13:41 | ADMGEN ---
This patient, Ruiz Mac, was admitted to IMU Room 232-01. Patient/family oriented to hospital policies and general routines including ID bracelet, bed and alarms, visiting hours, pain management, procedures, bathroom and other care routines, personal items, smoking policy, room service/diet, and visiting hours. Information on how to activate the Rapid Response Team has been discussed. Patient/Family are encouraged to report perceived risks to care and to ask questions if they do not understand what they are told or what they should do.
[2022-02-02 14:07] LABS: Troponin I 0.417 ng/mL (0.000-0.034)
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
[2022-02-02] MEDS: PERFLUTREN LIPID MICROSPHERES 1.5 ML VIAL DILUTED TO 10 ML TOTAL VOLUME IV PUSH (15:39)
--- NOTE | 2022-02-02 15:39 | IVDEFINITY ---
Prior to administration of IV Definity the patient was educated on the risks and benefits of the imaging enhancing agent including potential adverse side effects. The patient verbalized understanding. Allergies were verified. No exclusion criteria were identified and at least one of the following inclusion criteria were met: 1) physician request, 2) patient technically difficult to image (per the [place] [employer]chocardi[employer] guidelines of two or more segments not discernable within the apical view), or 3) questionable left ventricular function. ?
[2022-02-02 16:57] LABS: Troponin I 0.424 ng/mL (0.000-0.034)
[2022-02-02 18:52] LABS: Partial Thromboplastin Time 46.7 SECONDS (22.3-36.8)
[2022-02-02] MEDS: ROSUVASTATIN 10 MG TABLET 20 MG PO (20:19)
[2022-02-02] MEDS: METOPROLOL SUCCINATE EXT REL 50 MG TABCR PO (20:19)
--- NOTE | 2022-02-02 21:41 | PC.NURSE ---
This patient, Ruiz Mac, was transferred to [ICU 12 ] on 02/02/22 at 2142. Personal belongings sent with patient. Report given to [Juan Carlos lira ]. Appropriate documentation sent with patient.
[2022-02-03] VITALS (22 sets, daily range): BP systolic 117–147; BP diastolic 78–106; PULSE 46–86; RESP 11–27; TEMP 36.1–36.6; O2SAT 96–100
[2022-02-03 02:24] LABS: Partial Thromboplastin Time 101.9 SECONDS (22.3-36.8)
[2022-02-03 08:14] LABS: Basophils Percent Auto 0.4 % (0.2-1.2); Eosinophils Absolute Auto 0.3 K/mm3 (0-0.3); Hematocrit 45.2 % (42.0-52.0); Hemoglobin 14.9 g/dL (14.0-18.0); Immature Granulocyte Absolute 0.04 K/mm3 (0.00-0.031); Immature Granulocyte Percent A 0.4 % (0-0.5); Lymphocytes Absolute Auto 2.29 K/mm3 (0.9-3.2); Lymphocytes Percent Auto 24.2 % (18.3-44.2); Mean Corpuscular Hemoglobin 32.1 pg (26-34); Mean Corpuscular Volume 97.4 fl (80-100); Mean Platelet Volume 9.5 fl (7.4-10.4); Monocytes Absolute Auto 0.7 K/mm3 (0.1-0.6); Neutrophils Absolute Auto 6.1 K/mm3 (1.3-6.7); Platelet Count Result 222 k/mm3 (150-375); Red Blood Count 4.64 M/mm3 (4.6-6.20); Red Cell Distribution Width 13.3 % (11.5-14.5); White Blood Count 9.5 K/mm3 (4.5-10.0)
[2022-02-03 08:27] LABS: Alanine Aminotransferase 23 U/L (6-50); Albumin Level 3.8 g/dL (3.5-5.1); Alkaline Phosphatase 71 U/L (38-126); Anion Gap 9 mmol/L (8-16); Aspartate Amino Transferase 29 U/L (17-59); Bilirubin,Total 0.8 mg/dL (0.2-1.3); Blood Urea Nitrogen 12 mg/dL (9-20); Calcium 8.4 mg/dL (8.4-10.2); Carbon Dioxide 23 mmol/L (22-30); Chloride 106 mmol/L (98-107); Cholesterol 145 mg/dL (0-200); Estimated CRCL calculation 100 ml/min; Estimated Glomerular Filt Rate > 60; Glucose 116 mg/dL (65-110); HDL Direct 28 mg/dL; Lipase 233 U/L (23-300); Magnesium 2.2 mg/dL (1.6-2.3); Partial Thromboplastin Time 60.1 SECONDS (22.3-36.8); Potassium 4.4 mmol/L (3.4-5.0); Sodium 138 mmol/L (137-145); Triglycerides 210 mg/dL (<150)
[2022-02-03 08:37] LABS: LDL Cholesterol Direct 70 mg/dL
[2022-02-03] MEDS: ROSUVASTATIN 10 MG TABLET 20 MG PO (08:59)
[2022-02-03] MEDS: METOPROLOL SUCCINATE EXT REL 50 MG TABCR PO (08:59)
[2022-02-03] MEDS: HEPARIN SODIUM 5,000 UNITS/ML VIAL 3000 UNITS IV PUSH (09:03)
[2022-02-03] MEDS: LEVALBUTEROL NEB 1.25 MG/3 ML 0.63 MG INHALATION (09:27)
--- NOTE | 2022-02-03 09:48 | WPDMODSED ---
Moderate Sedation Note-Pt Data Patient Data Allergies Allergy/AdvReac Type Severity Reaction Status Date / Time No Known Allergies Allergy Unverified 11/04/19 03:25 Home Medications Medication Instructions Recorded Confirmed Type nitroglycerin 0.4 mg sublingual 0.4 mg sublingual Q5MIN PRN Chest 11/06/19 02/02/22 Rx tablet (Nitrostat) Pain #20 tabs Current Medications: Active Medications Aspirin (Aspirin 81 Mg Enteric Tablet) [facility] Heparin Sodium (Porcine) (Heparin Sodium 5,000 Units/Ml Vial) 4,000 units IV PUSH PRN PRN PRN Reason: aPTT less than 55 seconds Last Admin: 02/02/22 20:19 Dose: 4,000 units Heparin Sodium (Porcine) (Heparin Sodium 5,000 Units/Ml Vial) 3,000 units IV PUSH PRN PRN PRN Reason: aPTT 55 - 70 seconds Last Admin: 02/03/22 09:03 Dose: 3,000 units Heparin Sodium/Dextrose (Heparin Sodium/D5w 100 Units/Ml) 25,000 units in 250 mls @ 14 mls/hr IV CONT .[id number] HERNANDEZ; Protocol Last Titration: 02/03/22 08:56 Dose: 1,400 units/hr, 14 mls/hr Sodium Chloride (Normal Saline Iv) 500 mls @ 100 mls/hr IV CONT .Q5H HERNANDEZ Levalbuterol HCl (Levalbuterol Neb 1.25 Mg/3 Ml) 0.63 mg INHALATION Q6HRT [facility] Last Admin: 02/03/22 09:27 Dose: 0.63 mg Metoprolol Succinate (Metoprolol Succinate Ext Rel 50 Mg Tabcr) 50 mg PO [facility] Last Admin: 02/03/22 08:59 Dose: 50 mg Rosuvastatin Calcium (Rosuvastatin 10 Mg Tablet) 20 mg PO [facility] Last Admin: 02/03/22 08:59 Dose: 20 mg Sedation/Anesthesia: No previous sedation/anesthesia problems (including family history). [facility] Past Medical History Medical History HTN (hypertension), benign ST elevation (STEMI) myocardial infarction Surgical History Surgical History H/O heart artery stent Family History Family History Father Acute myocardial infarction Diabetes mellitus Mother Chronic obstructive pulmonary disease Social History Social History (Updated 02/02/22 @ 14:12 by Mary Evans NP) Social History: the patient stated that he is down to smoking 2-3 cigarettes a day. He is and does not have a car and rides his bicycle everywhere. He states that he lives with his father and takes care of him. He has 2 children. He denies any alcohol but does smoke marijuana for his pain in his hips. He is disabled. His sister is a durable power food clerk for him. Code status full code Years smoked: 40 Smoking status: Current some day smoker Tobacco type: cigarettes Second hand tobacco smoke exposure: Yes Additional smoking assessment comments: smokes marijuana and cigarettes Alcohol intake: current Drinks per week: 1 Substance use: current Substance use type: marijuana Last use: November 01 Spiritual care concerns: No Mod Sed Physical Exam Physical Exam Pre Procedural Exam: Normal: Airway Hours since solid foods: 12 Hours since liquid intake: 12 Mallampati Classification: class II Internal Medicine - PN: Obj Da Vital Signs Vital Signs: Vital Signs - 24 hr 02/02/22 10:34 02/02/22 11:47 02/02/22 12:16 Temperature 36.7 C Pulse Rate 93 77 81 Respiratory Rate 16 22 H 25 H Blood Pressure 158/100 H 140/78 132/85 Pulse Oximetry 99 98 Oxygen Delivery Room Air 02/02/22 12:25 02/02/22 12:31 02/02/22 13:00 Temperature 36.3 C L Pulse Rate 84 81 68 Respiratory Rate 22 H 23 H 18 Blood Pressure 132/86 130/89 147/78 H Pulse Oximetry 100 Oxygen Delivery 02/02/22 14:00 02/02/22 16:00 02/02/22 19:45 Temperature 36.0 C L 36.6 C Pulse Rate 89 96 Respiratory Rate 20 22 H Blood Pressure 143/113 H 141/76 H Pulse Oximetry 98 97 97 Oxygen Delivery Room Air 02/02/22 16:00 02/02/22 16:00 02/02/22 18:00 Temperature Pulse Rate 93 94 Respiratory Rate Blood Pressure Pulse Oximetry 9
[2022-02-03] MEDS: ASPIRIN 81 MG ENTERIC TABLET PO (09:49)
--- NOTE | 2022-02-03 09:49 | WPDHPUPDATE1 ---
History and Physical Update Update Date/Time: 02/03/22 09:49 History and Physical has been reviewed, including an updated exam of the patient. There are NO changes in the patient's condition. Risks, benefits, and alternatives have been discussed and questions answered. Patient agrees to proceed with procedure.
[2022-02-03] MEDS: SODIUM CHLORIDE 0.9% IV 500 ML 100 ML IV CONT (10:59)
--- NOTE | 2022-02-03 11:09 | PC.NURSE ---
Patient taken to cardiac cath technician via wheel chair. Heparin drip stopped just prior and fluids given to cathlab nurse.
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
--- NOTE | 2022-02-03 12:18 | WPDCARDPROC ---
Cardiac Cath Procedure Note Date of procedure:: 02/03/22 Performing physician:: Alfonso Marcos MD Procedure Procedure performed:: CARDIAC CATHETERIZATION AND PERCUTANEOUS CORONARY INTERVENTION REPORT DATE OF PROCEDURE: 02/03/2022 INDICATION FOR PROCEDURE: non ST-elevation myocardial infarction BRIEF CLINICAL HISTORY: 61-year-old male with CAD, history of inferior ST-elevation OK status post primary PCI/ EVANGELINA x1 mid RCA on 11/04/2019; Tobacco abuse, noncompliance. patient was admitted to [facility] on 02/02/2022 with complaints of chest pain. EKG showed sinus rhythm with frequent PVCs, no acute ST segment abnormality. Troponins were minimally elevated and essentially flat. He was referred for cardiac catheterization to re-evaluate coronary anatomy. Benefits and risks of the procedure were discussed with the patient in depth, and informed consent was obtained prior to the procedure. Risks of the procedure include but are not limited to vascular complications including groin hematoma, retroperitoneal bleed, vessel perforation; periprocedural OK, cardiac arrhythmias, stroke, contrast induced nephropathy, and . After discussing all the benefits, risks and alternatives, patient was willing to proceed with the procedure. PROCEDURES PERFORMED: 1. Left heart catheterization- Selective left and right coronary angiogram; left ventriculogram and hemodynamic assessment 2. Percutaneous coronary intervention- Attempted PCI on chronic total occlusion of mid RCA ( balloon angioplasty performed in the mid segment without temple of flow) 3. Deployment of Mynx hemostatic device 4. Moderate sedation-CPT code 13372 MODERATE SEDATION: Midazolam 2 mg; fentanyl 50 mcg. Start time 1134 , Stop time 1206 ; Total lkdg-ec-ntst time 32 minutes; Ayo Murcia RN was trained observer for moderate sedation. ACCESS SITE: Right common femoral artery PROCEDURE NOTE: After obtaining informed consent, patient was brought to catheterization lab and prepped and draped in a usual sterile manner. After local anesthesia with lidocaine, right common femoral artery access was taken with micropuncture needle followed by insertion of a 6 Finnish sheath. Selective left and right coronary angiogram was performed using 5 Finnish JL4 and JR4 catheters respectively. Orthogonal views were taken. Next, a 5 Finnish pigtail catheter was advanced in the LV cavity and was flushed with normal saline. LV pressure measurement was performed. After this, left ventriculogram was performed. The catheter was flushed again, and gradient across the aortic valve was measured on the pullback of the catheter. Finally, Mynx vascular closure device was deployed with good hemostasis. Patient tolerated procedure well without any immediate procedure related complications. FINDINGS: LEFT MAIN CORONARY: The left main coronary artery is a medium caliber vessel without significant focal stenosis. The vessel gives rise to LAD , ramus intermedius and left circumflex branches. Significant overlap is seen at the origin of the branches. LEFT ANTERIOR DESCENDING ARTERY: The LAD is a medium caliber vessel in the proximal segment with mild irregularities. The vessel gives rise to medium caliber 1st diagonal branch which has about 70% diffuse disease in the ostial -proximal segment. D2 is a medium caliber vessel without significant focal stenosis. The main LAD becomes diminutive vessel and is barely visualized in the distal segment. Qglf-ir-whrpw collaterals are seen , supplying the distal RCA branches. LEFT CIRCUMFLEX ARTERY: The left circumflex artery is a small to medium caliber vessel, gives rise to small to medium caliber OM1 branch without significant focal stenosis and very small caliber OM2 and OM3 branches with mild diffuse disease. RIGHT CORONARY ARTERY: The right coronary artery is a medium to large caliber vessel in the proximal segment and upper mid segment with diffuse 50-60% sten
--- NOTE | 2022-02-03 14:24 | SUR.PHASEII ---
Pt tranferred to IMU to Chata schwartz RN as bedside, groin visualized and pedal pulses noted. Pt reports he wants to leave, I brought myself here, I can take myself out. Education provided to pt on the reason for his care and why to stay, pt reports understanding and states he will stay for now. Meal tray to be ordered. Pt calm and resting in bed.
[2022-02-03] MEDS: SODIUM CHLORIDE 0.9% IV 1,000 ML 125 ML IV CONT (17:11)
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
== END 2022-02-03 18:55 | disposition home or self-care (01) | DRG 174 ==
LOC: ANHED 11:53 → ANHIMU 12:15
PROVIDERS: Internal Medicine; Internal Medicine Cardiovascular Disease; Nurse Practitioner; Admitting Provider Student in an Organized Health Care Education/Training Program; Emergency Provider Emergency Medicine; Visit Provider Internal Medicine
PROC: 4A023N7 Measurement of Cardiac Sampling and Pressure, Left Heart, Percutaneous Approach (ICD-10-PCS; CPT 93452; principal; 2022-02-03 11:30)
PROC: 02703ZZ Dilation of Coronary Artery, One Artery, Percutaneous Approach (ICD-10-PCS; CPT 92920; 2022-02-03 11:30)
PROC: 02703ZZ Dilation of Coronary Artery, One Artery, Percutaneous Approach (ICD-10-PCS; 2022-02-03 11:30)
DX: I21.4 Non-ST elevation (NSTEMI) myocardial infarction (principal); I10 Essential (primary) hypertension; I25.10 Atherosclerotic heart disease of native coronary artery without angina pectoris; E78.5 Hyperlipidemia, unspecified; F17.210 Nicotine dependence, cigarettes, uncomplicated; I25.2 Old myocardial infarction; Z79.899 Other long term (current) drug therapy; Z91.19 Patient's noncompliance with other medical treatment and regimen; Z95.5 Presence of coronary angioplasty implant and graft
CPT/HCPCS: 36415; 71046; 80053; 80061; 83690; 83735; 84443; 84484; 85025; 85610; 85730; 92920; 93005; 93458; 94640; 96365; 99291; A9270; C1725; C1760; C1769; C1887; C1894; C8929; G0269; G0378; G0379; J0583; J1644; J2250; J3010; J7030; J7040; Q9957

== ENCOUNTER 2022-10-18 06:39 | Inpatient (IN) | payer OTHER, SELFPAY ==
[2022-10-18] VITALS (46 sets, daily range): BP systolic 87–112; BP diastolic 56–81; PULSE 55–86; RESP 14–30; TEMP 36.4–36.7; O2SAT 93–100; BMI 22.1
--- NOTE | ~2022-10-18 | CT_ITS ---
EXAMINATION: CTA chest PE protocol DATE: 10/18/2022 09:22 INDICATION: Shortness of breath. Chest pain. TECHNIQUE: Computed tomography angiography (CTA) of the chest was performed with 100 mL Omnipaque-350 intravenous contrast timed to evaluate the pulmonary arteries. Coronal maximum intensity projection 3D-reconstructions were created by the technologist. Automated exposure control and iterative reconst ruction technique were employed. The dose-length product was 283.62 mGy-cm. COMPARISON: Chest single view 10/18/2022 FINDINGS: There is mild atelectasis in posterior segment right upper lobe. There are peripheral airsp jassi and groundglass opacities in the lower lobes and lingula. No pleural effusion. Cardiomegaly is no fran. There are coronary artery calcifications. There are acute bilateral pulmonary emboli including c omplete occlusion of right lower lobe pulmonary artery. There are segmental emboli in left lower lobe and lingula. There is mild bilateral gynecomastia. There is thoracolumbar dextroscoliosis and modera te spondylosis. IMPRESSION: 1. Acute pulmonary emboli involving the lower lobes and lingula. 2. Patchy infarcts and atelectasis involving the lower lobes and lingula. 3. Cardiomegaly. Enlargement of right ventricle is suspicious for right heart strain. Reviewed, dictated and finalized at location A. IMPRESSION: 1. Acute pulmonary emboli involving the lower lobes and lingula. 2. Patchy infarcts and atelectasis involving the lower lobes and lingula. 3. Cardiomegaly. Enlargement of right ventricle is suspicious for right heart s train.
--- NOTE | ~2022-10-18 | XR_ITS ---
EXAMINATION: XR chest 1V portable DATE: 10/18/2022 07:06 INDICATION: Right chest pain. Dyspnea. TECHNIQUE: A single frontal view of the chest was obtained. COMPARISON: Chest 2 views 02/02/2022 FINDINGS: There are mild airspace opacities in the lower lung zones. No pleural effusion or pneumotho rax. Cardiomegaly is noted. IMPRESSION: 1. Mild airspace opacities in the lower lung zones, consistent with atelectasis versus pneumonia. 2. Cardiomegaly. Reviewed, dictated and finalized at location A.
--- NOTE | ~2022-10-18 | US_ITS ---
EXAMINATION:US venous doppler LE BI INDICATION:Acute pulmonary embolism. TECHNIQUE: Multiple grayscale, color flow and Doppler images of the bilateral lower extremity deep ve nous systems were obtained and reviewed. COMPARISON:CTA dated 10/18/2022 FINDINGS: The right common femoral, superficial femoral and popliteal veins demonstrate normal respir atory variation, augmentation and compressibility. Color flow is also seen within the posterior tibi al, peroneal, greater saphenous and profunda veins. There is deep venous thrombosis of the left femoral and posterior tibial veins. IMPRESSION: 1: Deep venous thrombosis of the left femoral and posterior tibial veins. Reviewed, dictated and finalized at location B.
--- NOTE | 2022-10-18 06:43 | ECG_ITS ---
Measurements Intervals [place] Rate: 63 P: 53 NE: 154 QRS: 48 QRSD: 117 T: 146 QT: 417 QTc: 430 Interpretive Statements SINUS RHYTHM POSSIBLE LEFT ATRIAL ENLARGEMENT INCOMPLETE RIGHT BUNDLE BRANCH BLOCK MINIMAL Q WAVES- INFERIOR LEADS ST-T WAVE ABNORMALITY IN ANTEROLAT/HIGH LAT LEADS- CONSIDER ISCHEMIA BASELINE ARTIFACT- I, II, AVR, AVL, AVF, V1-V6 ABNORMAL ECG COMPARED TO ECG 02/02/2022 11:34:12 ST-T WAVE ABNORMALITY NOW PRESENT Electronically Signed On 10-18-2022 8:03:00 CDT by Manuel Caro D.O.
[2022-10-18 07:08] LABS: Basophils Absolute Auto 0.1 K/mm3 (0.0-0.1); Basophils Percent Auto 0.4 % (0.2-1.2); Eosinophils Absolute Auto 0.4 K/mm3 (0-0.3); Eosinophils Percent Auto 2.8 % (0-4.4); Hematocrit 45.7 % (42.0-52.0); Hemoglobin 14.9 g/dL (14.0-18.0); Immature Granulocyte Absolute 0.11 K/mm3 (0.00-0.031); Immature Granulocyte Percent A 0.8 % (0-0.5); Lymphocytes Absolute Auto 2.35 K/mm3 (0.9-3.2); Lymphocytes Percent Auto 16.7 % (18.3-44.2); Mean Corpuscular HGB Conc 32.6 g/dl (32-36); Mean Corpuscular Hemoglobin 30.2 pg (26-34); Mean Corpuscular Volume 92.7 fl (80-100); Mean Platelet Volume 10.1 fl (7.4-10.4); Monocytes Percent Auto 7.2 % (2.6-8.5); Neutrophils Absolute Auto 10.1 K/mm3 (1.3-6.7); Neutrophils Percent Auto 72.1 % (45.5-73.1); Platelet Count Result 276 k/mm3 (150-375); Red Blood Count 4.93 M/mm3 (4.6-6.20); Red Cell Distribution Width 15.9 % (11.5-14.5)
[2022-10-18 07:22] LABS: Alanine Aminotransferase 25 U/L (6-50); Albumin Level 3.8 g/dL (3.5-5.1); Alkaline Phosphatase 80 U/L (38-126); Anion Gap 10 mmol/L (8-16); Aspartate Amino Transferase 26 U/L (17-59); Bilirubin,Total 0.7 mg/dL (0.2-1.3); Blood Urea Nitrogen 18 mg/dL (9-20); Calcium 8.9 mg/dL (8.4-10.2); Carbon Dioxide 26 mmol/L (22-30); Chloride 101 mmol/L (98-107); Estimated CRCL calculation 73 ml/min; Estimated Glomerular Filt Rate > 60; Glucose 163 mg/dL (65-110); Potassium 3.2 mmol/L (3.4-5.0); Sodium 137 mmol/L (137-145)
[2022-10-18] MEDS: LEVALBUTEROL NEB 1.25 MG/3 ML 2.5 MG INHALATION (07:25)
[2022-10-18] MEDS: IPRATROPIUM BR 0.02% INH SOLN 0.5 MG/2.5 ML VIAL 1.5 MG INHALATION (07:25)
[2022-10-18 07:33] LABS: Troponin I 0.031 ng/mL (0.000-0.034)
[2022-10-18] MEDS: KETOROLAC 30 MG/ML VIAL (*BKC) IV PUSH (07:34)
--- NOTE | 2022-10-18 09:27 | ED.SOB ---
HPI - SOB/Dyspnea General Chief Complaint: Shortness of Breath/Dyspnea Stated Complaint: CP & SOB Time Seen by Provider: 10/18/22 07:00 History of Present Illness HPI Narrative: Patient is a 62-year-old male who presents ER with chest pain shortness of breath. Pain is in the lateral aspects of his chest wall. Worse with deep breath. Denies exertional component. No runny nose or sore throat. He does have cough and some wheezing. Patient reports history of PE. It appears he filled his Eliquis about a month ago. He is unsure how often he is taking it. Patient has not particularly helpful with history or exam. Reports that the main cause of his pain is when people speak to him. Related Data Home Medications Medication Instructions Recorded Confirmed apixaban 5 mg tablet (Eliquis) 5 mg BID 10/18/22 10/18/22 atorvastatin 40 mg tablet 40 mg DAILY 10/18/22 10/18/22 furosemide 80 mg tablet 80 mg DAILY 10/18/22 10/18/22 losartan 25 mg tablet 50 mg PO DAILY 10/18/22 10/18/22 metoprolol succinate 50 mg 25 mg PO QAM 10/18/22 10/18/22 tablet,extended release 24 hr spironolactone 25 mg tablet 12.5 mg DAILY 10/18/22 10/18/22 Allergies Allergy/AdvReac Type Severity Reaction Status Date / Time No Known Allergies Allergy Verified 10/18/22 07:03 Review of Systems Review of Systems: All systems reviewed & are unremarkable except as noted in HPI and below Constitutional: Constitutional: Denies chills, Denies fatigue and Denies fever(s) ENT: Denies nasal congestion and Denies sore throat Cardiovascular: Cardiovascular: Reports chest pain, Denies rapid heart rate and Denies radiating jaw, neck or arm pain Respiratory: Respiratory: Reports cough, Reports dyspnea and Reports wheezing Gastrointestinal: Gastrointestinal: Denies abdominal pain, Denies nausea and Denies vomiting [facility] Past Medical History Medical History (Updated 10/18/22 @ 18:28 by Cj Ponce MD) Coronary artery disease Cardiac catheterization January 2022 showed severe coronary artery disease with chronic total occlusion of the mid RCA with [id number] collaterals, 70% diffuse stenosis ostial-proximal segment of 1st diagonal, diminutive distal LAD, mild diffuse disease in a small caliber mid left circumflex. History of medication noncompliance Hyperlipidemia Hypertension Ischemic cardiomyopathy Left ventricular systolic dysfunction with infero posterior akinesis and global ejection fraction 40% at time of cardiac catheterization in October 2019. EF was 50% in January 2022. [address] elevation myocardial infarction (STEMI) (11/04/19) Acute inferior wall VT related to subtotal 99% stenosis in the midportion of the dominant right coronary artery status post stent which jailed the RV branch. Surgical History Surgical History (Updated 10/18/22 @ 13:18 by Sis Howell PA-C) History of cardiac catheterization 11/04/2019: Anterior wall VT status post stent to the midportion of the RCA with jailed RV branch. 02/03/2022: Attempted PCI on chronic total occlusion of mid RCA-no confucianist of flow with balloon angioplasty. History of coronary artery stent placement Family History Family History Father Acute myocardial infarction Diabetes mellitus Mother Chronic obstructive pulmonary disease Social History Social History (Updated 10/18/22 @ 13:19 by Sis Howell PA-C) Social History: Surrogate medical decision maker: Zoe Mclean, sister. Code status: Full code. Years smoked: 40 Smoking status: Current some day smoker Tobacco type: cigarettes Second hand tobacco smoke exposure: Yes Additional smoking assessment comments: smokes a pack over 3 days Alcohol intake: current Drinks per week: 1 Substance use: current Substance use type: marijuana Lack of Transportation: YES Lack of Food: Sometimes True Current Housing: I Do Not Have Housing Concer
[2022-10-18] MEDS: ENOXAPARIN 80 MG/0.8 ML SYRINGE 68 MG SUB-Q (09:57)
[2022-10-18 11:02] LABS: NT Pro B Type Natriuretic Pept 1540 pg/mL (19.9-100)
--- NOTE | 2022-10-18 13:07 | PM.IMHP ---
H&P: HPI History of Present Illness Date/Time: 10/18/22 13:00 Chief Complaint: Chest pain and shortness a breath. Narrative: This is a 62-year-old male smoker with a history of noncompliance, coronary artery disease, ischemic cardiomyopathy, hypertension, hyperlipidemia, and pulmonary embolism who presented to the emergency department via EMS from home for evaluation of chest pain and shortness of breath. The patient provides the following history. He was wakened from sleep last night with a sharp, stabbing pain in the right anterior chest radiating through to the back associated with shortness of breath. The pain is aggravated by movement, cough, and deep inspiration. He has no discomfort at this time after receiving ketorolac in the ED. He denies syncope, near syncope, exertional chest pain, cough, nausea, vomiting, and sweats. Blood pressures have been a bit soft in the ED with otherwise stable vital signs. Labs were significant for a WBC count of 14.0, potassium 3.2, glucose 163, troponin 0.031, proBNP 1540. Chest x-ray showed mild airspace opacities in the lower lung zones consistent with atelectasis versus pneumonia and cardiomegaly. CT of the chest showed acute pulmonary emboli involving the lower lobes and lingula including complete occlusion of the right lower lobe pulmonary artery, patchy infarcts and atelectasis involving the lower lobes and lingula, and cardiomegaly with enlargement of the right ventricle which is suspicious for right heart strain. He was given a therapeutic dose of Lovenox and he is being admitted in this setting for further treatment and evaluation. Of note his external medications were reviewed and he was prescribed apixaban on 09/18/2022 by an unknown prescriber. He thinks that he was prescribed that for a pulmonary embolism but he cannot say for certain and he does not know where he was seen or by whom. It sounds as though he took the apixaban once a day for a brief period of time but he is no longer taking that for reasons unclear to the patient. Review of Systems Review of Systems: Twelve systems were reviewed and are negative except for as per HPI. [facility] Past Medical History Medical History (Updated 10/18/22 @ 15:46 by Sis Howell PA-C) Coronary artery disease Cardiac catheterization January 2022 showed severe coronary artery disease with chronic total occlusion of the mid RCA with [id number] collaterals, 70% diffuse stenosis ostial-proximal segment of 1st diagonal, diminutive distal LAD, mild diffuse disease in a small caliber mid left circumflex. History of medication noncompliance Hyperlipidemia Hypertension Ischemic cardiomyopathy Left ventricular systolic dysfunction with infero posterior akinesis and global ejection fraction 40% at time of cardiac catheterization in October 2019. EF was 50% in January [address]22. [address] elevation myocardial infarction (STEMI) (11/04/19) Acute inferior wall WA related to subtotal 99% stenosis in the midportion of the dominant right coronary artery status post stent which jailed the RV branch. Surgical History Surgical History (Updated 10/18/22 @ 13:18 by Sis Howell PA-C) History of cardiac catheterization 11/04/2019: Anterior wall [place] status post stent to the midportion of the RCA with jailed RV branch. 02/03/2022: Attempted PCI on chronic total occlusion of mid RCA-no orthodox of flow with balloon angioplasty. History of coronary artery stent placement Family History Family History Father Acute myocardial infarction Diabetes mellitus Mother Chronic obstructive pulmonary disease Social History Social History (Updated 10/18/22 @ 13:19 by Sis Howell PA-C) Social History: Surrogate medical decision maker: Zoe Mlcean, sister. Code status: Full code. Years smoked: 40 Smoking status: Current some day smoker Tobacco type: cigarettes Second hand tobacco smo
[2022-10-18 14:15] LABS: Troponin I 0.037 ng/mL (0.000-0.034)
--- NOTE | 2022-10-18 17:09 | ADMGEN ---
This patient, Ruiz Mac, was admitted to IMU Room 203-01 at 1609. Patient/family oriented to hospital policies and general routines including ID bracelet, bed and alarms, visiting hours, pain management, procedures, bathroom and other care routines, personal items, smoking policy, room service/diet, and visiting hours. Information on how to activate the Rapid Response Team has been discussed. Patient/Family are encouraged to report perceived risks to care and to ask questions if they do not understand what they are told or what they should do.
[2022-10-18] MEDS: ENOXAPARIN 80 MG/0.8 ML SYRINGE 70 MG SUB-Q (20:59)
[2022-10-18] MEDS: POTASSIUM CHLORIDE 20 MEQ TABLET PO (21:33)
[2022-10-19] VITALS (10 sets, daily range): BP systolic 103–115; BP diastolic 63–71; PULSE 62–84; RESP 18–20; TEMP 35.6–36.6; O2SAT 98–99; BMI 22.1
[2022-10-19 04:59] LABS: Hematocrit 45.3 % (42.0-52.0); Mean Corpuscular HGB Conc 33.1 g/dl (32-36); Mean Corpuscular Hemoglobin 30.2 pg (26-34); Mean Corpuscular Volume 91.1 fl (80-100); Mean Platelet Volume 10.2 fl (7.4-10.4); Platelet Count Result 282 k/mm3 (150-375); Red Blood Count 4.97 M/mm3 (4.6-6.20); Red Cell Distribution Width 15.5 % (11.5-14.5); White Blood Count 17.7 K/mm3 (4.5-10.0)
[2022-10-19 05:07] LABS: Anion Gap 7 mmol/L (8-16); Blood Urea Nitrogen 24 mg/dL (9-20); Calcium 9.5 mg/dL (8.4-10.2); Carbon Dioxide 29 mmol/L (22-30); Chloride 103 mmol/L (98-107); Estimated CRCL calculation 76 ml/min; Estimated Glomerular Filt Rate > 60; Glucose 117 mg/dL (65-110); Magnesium 2.1 mg/dL (1.6-2.3); Potassium 3.8 mmol/L (3.4-5.0); Sodium 139 mmol/L (137-145)
[2022-10-19] MEDS: ATORVASTATIN 40 MG TABLET BY MOUTH (08:46)
[2022-10-19] MEDS: ENOXAPARIN 80 MG/0.8 ML SYRINGE 70 MG SUB-Q (08:46)
[2022-10-19] MEDS: ASPIRIN 81 MG ENTERIC TABLET PO (08:46)
[2022-10-19] MEDS: LOSARTAN POTASSIUM 25 MG TABLET 50 MG PO (08:47)
[2022-10-19] MEDS: METOPROLOL SUCCINATE EXT REL 25 MG TABCR PO (08:47)
[2022-10-19] MEDS: SPIRONOLACTONE 12.5 MG TABLET BY MOUTH (08:47)
--- NOTE | 2022-10-19 08:50 | PM.IMPN ---
Progress Note: A&P Assessment and Plan (1) Bilateral pulmonary embolism: Code(s): I26.99 - Other pulmonary embolism without acute cor pulmonale Status: Acute Assessment and Plan: Chest CTA shows acute pulmonary emboli involving the lower lobes and lingula including complete occlusion of the right lower lobe artery. He was diagnosed with the PE last month and was prescribed apixaban of which he has not been compliant. At this time he is resting comfortably with SpO2 was in the upper 90s on room air. Restart eliquis. We discussed the importance of being compliant with his medications. Venous Doppler ultrasounds of lower extremities and showed left DVT. (2) Pulmonary infarction: Code(s): I26.99 - Other pulmonary embolism without acute cor pulmonale Status: Acute Assessment and Plan: Patchy infarcts and atelectasis were noted in the lower lobes and lingula on imaging. (3) Right ventricular enlargement: Code(s): I51.7 - Cardiomegaly Status: Acute Assessment and Plan: CTA of the chest shows enlargement of the right ventricle suspicious for right heart strain. 3 hours troponin was mildly elevated at 0.037 and his proBNP was 1540. Echocardiogram in January 2022 showed a normal right ventricular chamber size with mildly reduced RV systolic function. Echocardiogram has been ordered and is pending. (4) Ischemic cardiomyopathy: Code(s): I25.5 - Ischemic cardiomyopathy Status: Acute Assessment and Plan: Echo in January 2022 showed mildly reduced LV systolic function with an estimated EF of 50%. He is clinically compensated. (5) Coronary artery disease: Code(s): I25.10 - Atherosclerotic heart disease of [place] coronary artery without angina pectoris Status: Acute Assessment and Plan: Longstanding history of noncompliance with his medications. He complains of pleuritic pain which is likely related to his pulmonary emboli. He denies exertional chest pain. EKG does show ST T-wave abnormalities in the anterior lateral and high lateral leads. Echocardiogram is pending. (6) History of medication noncompliance: Code(s): Z91.148 - Patient's other noncompliance with medication regimen for other reason Status: Acute Assessment and Plan: Discussed importance of being compliant with his home medications though not certain he is motivated. (7) Hyperglycemia: Code(s): R73.9 - Hyperglycemia, unspecified Status: Acute Assessment and Plan: Check fasting glucose, hemoglobin A1c = 6 Blood glucose reviewed 10/19 Accuchecks + SSI started, rec metformin at d/c and outpatient f/u for diabetes dx Consult inclusion special educator (8) Hypertension: Qualifiers: Hypertension type: essential hypertension Qualified Code(s): I10 - Essential (primary) hypertension Code(s): I10 - Essential (primary) hypertension Status: Acute Assessment and Plan: Blood pressures reviewed 10/19 Home antihypertensives restarted, monitor closely (9) Tobacco abuse: Code(s): Z72.0 - Tobacco use Status: Acute Assessment and Plan: Smoking cessation is encouraged but he is not motivated. He declines the need for nicotine patch. Plan DVT prophylaxis with eliquis GI prophylaxis not indicated Code status full code Subjective Date/time seen: 10/19/22 08:50 Interval history: 62-year-old male with history of heart disease, PE non compliant with Eliquis, presenting with chest pain shortness a breath and worsened PEs. No overnight events noted. No nausea, vomiting or diarrhea. No fevers or chills. Still with some chest pain and sob with exertion. Review of Systems Review of Systems: 12 point review of systems was assessed and was negative except as noted in the HPI Exam Narrative: General: No acute distress, alert and oriented per baseline HEENT: Atra[place]
[2022-10-19 12:01] LABS: Glucose Point of Care 167 mg/dl (65-105)
--- NOTE | 2022-10-19 13:09 | PM.DS ---
DS: Admitting Diagnosis Discharge Date 10/19/22 Admitting Diagnosis chest pain DS: Discharge Diagnosis Discharge Diagnosis (1) Bilateral pulmonary embolism: Code(s): I26.99 - Other pulmonary embolism without acute cor pulmonale Status: Acute Assessment and Plan: Chest CTA shows acute pulmonary emboli involving the lower lobes and lingula including complete occlusion of the right lower lobe artery. He was diagnosed with the PE last month and was prescribed apixaban of which he has not been compliant. At this time he is resting comfortably with SpO2 was in the upper 90s on room air. Restart eliquis. We discussed the importance of being compliant with his medications. Venous Doppler ultrasounds of lower extremities have been ordered to evaluate for possible DVT. (2) Pulmonary infarction: Code(s): I26.99 - Other pulmonary embolism without acute cor pulmonale Status: Acute Assessment and Plan: Patchy infarcts and atelectasis were noted in the lower lobes and lingula on imaging. (3) Right ventricular enlargement: Code(s): I51.7 - Cardiomegaly Status: Acute Assessment and Plan: CTA of the chest shows enlargement of the right ventricle suspicious for right heart strain. 3 hours troponin was mildly elevated at 0.037 and his proBNP was 1540. Echocardiogram in January 2022 showed a normal right ventricular chamber size with mildly reduced RV systolic function. Echocardiogram has been ordered and is pending. (4) Ischemic cardiomyopathy: Code(s): I25.5 - Ischemic cardiomyopathy Status: Acute Assessment and Plan: Echo in January 2022 showed mildly reduced LV systolic function with an estimated EF of 50%. He is clinically compensated. (5) Coronary artery disease: Code(s): I25.10 - Atherosclerotic heart disease of [place] coronary artery without angina pectoris Status: Acute Assessment and Plan: Longstanding history of noncompliance with his medications. He complains of pleuritic pain which is likely related to his pulmonary emboli. He denies exertional chest pain. EKG does show ST T-wave abnormalities in the anterior lateral and high lateral leads. Echocardiogram is pending. (6) History of medication noncompliance: Code(s): Z91.148 - Patient's other noncompliance with medication regimen for other reason Status: Acute Assessment and Plan: Discussed importance of being compliant with his home medications though not certain he is motivated. (7) Hyperglycemia: Code(s): R73.9 - Hyperglycemia, unspecified Status: Acute Assessment and Plan: Check fasting glucose, hemoglobin A1c = 6 Blood glucose reviewed 10/19 Accuchecks + SSI started, rec metformin at d/c and outpatient f/u for diabetes dx Consult bush regenerator (8) Hypertension: Qualifiers: Hypertension type: essential hypertension Qualified Code(s): I10 - Essential (primary) hypertension Code(s): I10 - Essential (primary) hypertension Status: Acute Assessment and Plan: Blood pressures reviewed 10/19 Home antihypertensives restarted, monitor closely (9) Tobacco abuse: Code(s): Z72.0 - Tobacco use Status: Acute Assessment and Plan: Smoking cessation is encouraged but he is not motivated. He declines the need for nicotine patch. Plan DVT prophylaxis with eliquis GI prophylaxis not indicated Code status full code DS: Summary Hospital Course Hospital Course: 62-year-old male with history of heart disease, PE non compliant with Eliquis, presenting with chest pain, shortness of breath and worsened PEs. DVT of the left femoral and posterior tibial veins noted. Time Spent with Patient Time attestation: Total time spent providing and/or coordinating discharge services: Exam Narrative: General: No acute distress, alert and oriented per baseline HEENT:
--- NOTE | 2022-10-19 13:52 | ECG_ITS ---
Measurements Intervals [place] Rate: 65 P: 66 RI: 172 QRS: 67 QRSD: 109 T: 122 QT: 410 QTc: 427 Interpretive Statements SINUS RHYTHM INCOMPLETE RIGHT BUNDLE BRANCH BLOCK ST-T WAVE ABNORMALITY IN ANTEROLAT/HIGH LAT LEADS- CONSIDER ISCHEMIA ABNORMAL ECG COMPARED TO ECG 10/18/2022 06:45:45 NO SIGNIFICANT CHANGES Electronically Signed On 10-19-2022 15:03:34 CDT by Manuel Caro D.O.
--- NOTE | 2022-10-19 15:44 | PM.CNPUL ---
Assessment and Plan Assessment and plan (1) Pulmonary embolism: Code(s): I26.99 - Other pulmonary embolism without acute cor pulmonale Status: Acute Assessment and Plan: Patient presumably has a history of PE and has been noncompliant with the apixaban. Currently the patient has pulmonary embolism with left lower extremity DVT. The patient has been hemodynamically stable, been on room air, has an elevated BNP, elevated troponin and evidence of right heart strain on his CT angiogram. Echocardiogram is pending. Given his normal blood pressure I would not perform thrombolysis at this time and agree with continuation of anticoagulation with Eliquis. I will place the patient on 10 mg p.o. b.i.d. x7 days then 5 mg p.o. b.i.d. thereafter. Patient tells me he will follow up at the [facility]. We should ensure that he has access to Eliquis as described above on discharge. Discussed with Dr. Laird. Will sign off. Call with questions History of Present Illness History of Present Illness Consult date: 10/19/22 Chief complaint: Pulmonary Embolism Narrative: 10/19/2022: This is a new pulmonary consult for pulmonary embolism and need for thrombolysis.. 62-year-old with a history of tobacco use, coronary artery disease, hypertension, hyperlipidemia and per the chart patient had a previous pulmonary embolism but was sporadically taking apixaban. patient tells me he receives his medical [facility] and has been there in the last 6 months but does not know any of his current medications. The patient tells me he thinks he had a blood clot but they put a stent in . I asked him if he take a blood thinner and he said he thought he did but was not sure. Patient is unsure if he had blood clots in his lungs. The patient thinks he may have taken apixaban in the past but has no details and does not know if he was currently taking apixaban. Patient presented to the hospital on 10/18/2022 with chest pain and shortness of breath and CT angiogram of the chest demonstrated bilateral pulmonary embolism in the lower lobes, lingula with pleural based triangular patchy infiltrates suggesting pulmonary infarcts. There was evidence of right ventricular strain on the CT scan. Patient was treated with Lovenox full dose. Patient was hemodynamically stable and required no oxygen. Patient is current tobacco user at 1 pack per day since age 17 for total of 45 pack years, patient is smoked marijuana 1 cigarette a day for greater than 10 years for right hip pain. Was exposed to secondhand smoke from both parents. 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 Patient denies any illicit drug use, sandblasting, welding, asbestos work or professional painting. 10/19 Currently the patient denies any fever, chills, rigors or chest pain. He denies any hemoptysis. Today the patient tells me he has no respiratory issues and feels back to his baseline. His room air saturations are 96%. He is hemodynamically stable. Lower extremity Dopplers demonstrate DVT in the left femoral and posterior tibial veins. He complains of right hip pain since 1986 which is unchanged. DATA: echo 02/02/2022 Summary ? 1. Left ventricular chamber dimension is normal. ? 2. Left ventricular systolic function is mildy reduced, estimated at 50% with basal inferior hypokinesis. ? 3. There is mildly increased left ventricular wall thickness. ? 4. Left ventricular septal wall motion is abnormal with septal motion related to bundle branch block. ? 5. The left ventricular diastolic function is normal. ? 6. Right ventricular systolic function is mildly reduced. TAPSE 1.5. ? 7. There is no aortic valve stenosis. ? 8. There is trace mitral valve regurgitation. Left Ventricle ? Left ventricular chamber dimension is normal. ? Left ventricular systolic function is mildy reduced, estimated at 50% with basal inferior hypokinesis. ? There is
--- NOTE | 2022-10-19 16:25 | PC.NURSE ---
Dr. Vernon informed of telemetry changes in patient. Patient denies chest pain. She ordered stat EKG, troponin and Cardiology consult. Patient informed of these orders and agreed. Dr. Vernon informed of EKG results. Lab in to draw troponin, can labeler reports to RN that patient is refusing and wants to leave. RN in to talk to patient, educated on symptoms and importance of the ordered tests. Patient wishes to sign out AMA. Dr. Vernon paged overhead to call IMU back. Dr. August came up to see patient for consult, he was informed of patient request to sign out AMA and patient refusal of treatment, Dr. Vernon will be informed that the consult will not be carried out as patient has signed AMA papers. prosthetic lab technician made aware of situation. IV and telemetry removed. Patient out at 1621.
--- NOTE | 2022-11-01 15:50 | PM.DS ---
DS: Admitting Diagnosis Discharge Date 10/19/22 Admitting Diagnosis chest pain DS: Discharge Diagnosis Discharge Diagnosis (1) Bilateral pulmonary embolism: Code(s): I26.99 - Other pulmonary embolism without acute cor pulmonale Status: Acute (2) Pulmonary infarction: Code(s): I26.99 - Other pulmonary embolism without acute cor pulmonale Status: Acute (3) Right ventricular enlargement: Code(s): I51.7 - Cardiomegaly Status: Acute (4) Ischemic cardiomyopathy: Code(s): I25.5 - Ischemic cardiomyopathy Status: Acute (5) Coronary artery disease: Code(s): I25.10 - Atherosclerotic heart disease of [place] coronary artery without angina pectoris Status: Acute (6) History of medication noncompliance: Code(s): Z91.148 - Patient's other noncompliance with medication regimen for other reason Status: Acute (7) Hyperglycemia: Code(s): R73.9 - Hyperglycemia, unspecified Status: Acute (8) Hypertension: Qualifiers: Hypertension type: essential hypertension Qualified Code(s): I10 - Essential (primary) hypertension Code(s): I10 - Essential (primary) hypertension Status: Acute (9) Tobacco abuse: Code(s): Z72.0 - Tobacco use Status: Acute DS: Summary Hospital Course Hospital Course: 62-year-old male with history of heart disease, PE non compliant with Eliquis, presenting with chest pain shortness of breath and worsened PEs. Chest CTA shows acute pulmonary emboli involving the lower lobes and lingula including complete occlusion of the right lower lobe artery. He was diagnosed with the PE last month and was prescribed apixaban of which he has not been compliant. At this time he is resting comfortably with SpO2 was in the upper 90s on room air. Restart eliquis. We discussed the importance of being compliant with his medications. Venous Doppler ultrasounds of lower extremities and showed left DVT. CTA of the chest shows enlargement of the right ventricle suspicious for right heart strain. 3 hours troponin was mildly elevated at 0.037 and his proBNP was 1540. Echocardiogram in January 2022 showed a normal right ventricular chamber size with mildly reduced RV systolic function. Echocardiogram has been ordered and is pending. Longstanding history of noncompliance with his medications. He complains of pleuritic pain which is likely related to his pulmonary emboli. He denies exertional chest pain. EKG does show ST T-wave abnormalities in the anterior lateral and high lateral leads. Echocardiogram is pending. 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 Time Spent with Patient Time attestation: Total time spent providing and/or coordinating discharge services: Discharge Plan Discharge Consulting providers: Clayton Bowling; Wilner Hernadez; Avelino Tolliver; Sis Howell; Manuel Caro; Valentino Epstein V. Patient Disposition: Left Against Medical Advice Patient Instructions: Apixaban (By mouth), How to Stop Smoking (DC) Discharge Medications: No Action nitroglycerin [Nitrostat] 0.4 mg Tablet, Sublingual 0.4 mg sublingual Q5MIN PRN (Reason: Chest Pain) Qty: 20 5RF aspirin 81 mg Tablet,Delayed Release (Dr/Ec) 81 mg PO QAM Qty: 30 2RF atorvastatin 40 mg tablet 40 mg DAILY spironolactone 25 mg tablet 12.5 mg DAILY furosemide 80 mg tablet 80 mg DAILY Eliquis 5 mg tablet 5 mg BID metoprolol succinate 50 mg tablet extended release 24 hr 25 mg PO QAM losartan 25 mg tablet 50 mg PO DAILY Date of admission: 10/18/22 11:51 Primary Care Provider: PHYSICIAN,INVESTOR RELATIONS SPECIALIST Admitting Provider: Dalton West Attending physician on admission: Maru Vernon Condition: Stable
== END 2022-10-19 16:21 | disposition left against medical advice (07) | DRG 134 ==
LOC: ANHED 09:53 → ANHIMU 10:23
PROVIDERS: Emergency Medicine; Physician Assistant; Admitting Provider Internal Medicine; Emergency Provider Emergency Medicine; Visit Provider Student in an Organized Health Care Education/Training Program
DX: I26.99 Other pulmonary embolism without acute cor pulmonale (principal); I82.412 Acute embolism and thrombosis of left femoral vein; I82.442 Acute embolism and thrombosis of left tibial vein; Z91.148 Patient's other noncompliance with medication regimen for other reason; I25.10 Atherosclerotic heart disease of native coronary artery without angina pectoris; I25.5 Ischemic cardiomyopathy; I51.7 Cardiomegaly; R73.9 Hyperglycemia, unspecified; F17.210 Nicotine dependence, cigarettes, uncomplicated; I25.2 Old myocardial infarction; Z95.5 Presence of coronary angioplasty implant and graft
CPT/HCPCS: 36415; 71045; 71275; 80048; 80053; 82948; 83036; 83735; 83880; 84484; 85025; 85027; 93005; 93970; 94640; 96372; 96374; 99285; A9270; G0378; G0379; J1650; J1885; Q9967

== ENCOUNTER 2023-06-18 12:21 | Emergency (ER) | payer OTHER, SELFPAY ==
[2023-06-18 13:21] VITALS: BP 129/99; PULSE 50; RESP 16; TEMP 36.7; O2SAT 97
--- NOTE | 2023-06-18 15:00 | PC.NURSE ---
pt to desk stating he does not want to be seen. requesting us to call his family thought does not know any phone numbers. none found in his past chart.
== END 2023-06-18 16:48 | disposition left against medical advice (07) ==
DX: R60.0 Localized edema (principal)
CPT/HCPCS: 99199